=== PATIENT | female | born 1960 | race Asian ===

== ENCOUNTER → 2017-09-09 09:20 | Outpatient (CLI) | payer OTHER, SELFPAY ==
--- NOTE | 2017-09-09 09:22 | RAD_ITS ---
STUDY: X-RAY - LUMBOSACRAL SPINE REASON FOR EXAM: Female, 57 years old. Low back pain. TECHNIQUE: 7 view(s) of the lumbosacral spine were obtained with flexion and extension. COMPARISON: CT scan 07/04/2017 FINDINGS: Normal lumbar lordosis. There is no substantial scoliosis. There is normal alignment of the vertebrae. There is grossly normal flexion and extension. 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 Stable moderate degenerative disc disease at L5-S1. Otherwise normal disc space heights. Normal bilateral sacral ala, sacroiliac joints, and visualized sacrum. Normal visualized soft tissue structures. RAD/L/S Spine Comp/w Bending Views IMPRESSION: Mild to moderate degenerative changes, stable since previous CT scan. Electronically Signed: Duy Campo MD at 16:52 EST , Service support ,
== END ==
PROVIDERS: Family Provider Family Medicine; PCP Family Medicine; Visit Provider Orthopaedic Surgery
DX: M54.5 Low back pain (principal)
CPT/HCPCS: 72114

== ENCOUNTER 2017-11-28 07:00 | Outpatient (RCR) | payer OTHER, SELFPAY ==
--- NOTE | 2017-10-01 10:37 | HP.PTEVAL_ITS ---
Patient's Visit Information MAURICIO LEWIS is a 57 year old F referred to Physical Therapy by Nicole PEREZ with a diagnosis of Back pain, osteoporosis. Date of Evaluation: 10/01/17 Physical Therapist: Julius Subramanian DPT, OC - Visit Plan Frequency: 2x /Week Duration: 4 Weeks Plan: 2x/weekf for 4 weeks. Monitor walking program. STM for 10-12 minutes to R and L UT and posterior shoulder. Teach core strength on mat, with band, with ball and fucntional WB lunges and squats and progress al to HEP with pics. - Subjective Subjective: 2 months ago back pain for no apparent reason. 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 It flares up every now and then. last pain was a couple days ago real light. Bad pain was 9/10 could not move in LB. No leg pain, no numbness or tingling but does cramp in calves. Pain mostly went away with time and OTC pain meds. Last time was most serious. That lasted 2-3 days. Sleep was challenging the first night. Sleep is now OK and Ok in morning. IT can be worse later in the day with sitting. 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 Missed the first day of pain but not since. Hobbies include walking and did this a couple weeks ago without a problem. No regular exercises except walking. Does 1-3 miles, does this Couple times per week and 1x/week in winter. Balance is OK. Basic ADLs are good today. Has jacket that she puts weights in up to 10# to get WB ex. - Pain LBP Pain Intensity (Out of 10): 0 Pain Intensity Range: 0, 9 - Objective Walks I without deviations, trasnfers without evidence of pain I to and fro sit and supine. LE AROM WFL and flexibility is mildly limited in ITB, UE AROM WFL, R shoulder mildly tender posterior to palpation. No tenderness in lumbar paraspinals or hips. reflexes 2/3 patella and achilles. Sensation EL WNL to gross light touch. Strength LE 4/5 in knees and ankles. 3+ hip abd and extension, 4 in flexion, no pain. LB AROM is full and painfree. Posture is forward head and scapula and flat lordosis. - Balance Scores Functional Gait Assessment Score: 30 % Disability: 0 - Goals Goal 1:: I approp HEP to mionimize future problems for WB ex and core/hip/ postural strength. Goal Time Frame: 4-6 Weeks Goal 2:: 4/5 hip strength and posture in neutral spine without VC. Goal Time Frame: 4-6 Weeks Goal 3:: Pain 0/10 in LB for two weeks. Goal Time Frame: 4-6 Weeks - Rehabilitation Potential Physical Therapy Diagnosis: H/O LBP appropriate for ex management. Rehabilitation Potential: Good - Anticipated Interventions Patient/Client Instruction: Educate patient on: Condition, Plan of Care, Risk Factors For the Purpose of:: To decrease pain, To improve muscle performance and motor function, To improve safety Therapeutic Exercise to Include: Strength training, Dynamic Lumbar Stabilization Comment: WB exercises for OP(walking progression and management. For the Purpose of:: To improve nutrient delivery to tissue, To improve muscle performance and motor function, To improve health of tissue, To reduce risk of recurrence, To improve safety Manual Therapy Techniques to Include: Soft tissue mobilization Comment: R upper back and shoulder For the Purpose of:: To improve nutrient delivery to tissue Thank you for the opportunity to evaluate your patient. For Medicare and Medicare HMO plans, please review the plan of care and approve it. It will need to be FAXED BACK to us at [phone] for Medicare purposes. Please let me know if there are questions or concerns regarding this plan of care. Physician Signature: Date:
--- NOTE | 2017-11-28 07:30 | HP.PTDCSUM_ITS ---
HP - PT D/C Summary It has been my pleasure to treat MAURICIO LEWIS under orders from Nicole Dillard, for the diagnosis of Back pain, osteoporosis for a total of 13 visit(s). Discharge Date: 11/28/17 Please see the following information for a summary of their discharge status. - Subjective Subjective: 70% better. Still has R shoulder pain at times but much less intense than it used to be. LB does not bother her at all. Neck and R shoulder to 3/10 at times usually with work. Sleep is OK. Ex OK. - Pain LBP Pain Intensity (Out of 10): 1 - Overall Improvement % Improvement: 70 - Objective Objective/Function: Full aROM shoulder and neck, still some tightness R UT. Still weak in ext rot B shoulders but much improved posture with exercises and functionally. - Goals Goal 1:: I approp HEP to mionimize future problems for WB ex and core/hip/ postural strength. Goal Progress: Goal Met Goal 2:: 4/5 hip strength and posture in neutral spine without VC. Goal Progress: Goal Met Goal 3:: Pain 0/10 in LB for two weeks. Goal Progress: Goal Met Goal 4:: Pain and achiness in shoulder back down to 0/10 and 95% better. Goal Progress: Progressing - Plan Plan: D/C to HEP - D/C Information Discharge Comments: Pt doing well and will continue with strength and stretch 3x /week I. Contact doctor if problem recurs. If there are questions or concerns regarding this patient's physical therapy, please feel free to call me at [phone]. Thank you for the referral of this patient. Sincerely, Julius Subramanian, DPT, OC
== END 2017-11-28 19:00 | disposition home or self-care (01) ==
LOC: PT 07:00
PROVIDERS: Family Provider Family Medicine; PCP Family Medicine; Visit Provider Orthopaedic Surgery
DX: M54.9 Dorsalgia, unspecified (principal); M81.0 Age-related osteoporosis without current pathological fracture
CPT/HCPCS: 97035; 97110; 97140; 97162; 97530

== ENCOUNTER → 2018-03-23 12:16 | Outpatient (CLI) | payer OTHER, SELFPAY ==
[2018-03-23 14:12] LABS: Absolute Lymphocyte Count 2.47 X10^3/ul (0.83-4.51); Basophil# 0.02 X10^3/uL; Basophil% 0.3 % (0-1); Eosinophils% 1.6 % (0-5); Hematocrit 41.9 % (37-47); Hemoglobin 13.6 g/dl (12.0-15.0); Lymphocyte # 2.47 X10^3/ul (4.0); Lymphocyte % 40.7 % (19-41); Mean Corp Hgb Conc 32.5 g/gl (32-36); Mean Corpuscular Hgb 29.5 pg (27.0-32.0); Mean Corpuscular Volume 90.9 fL (81-99); Mean Platelet Vol. 10.7 fl (6.2-12.0); Monocyte# 0.45 X10^3/uL; Monocyte% 7.4 % (0-10); Neutrophil # 3.02 X10^3/uL (2.7-7.7); Neutrophil % 49.8 % (47-70); Partial Thromboplast Time 31.4 Seconds (24.1-36.2); Platelet Count 222 K/mm3 (150-450); Prothrombin Time (Protime)PT. 12.7 SECONDS (11.7-14.9); RBC Distribution Width CV 13.6 % (11.6-14.6); RBC Distribution Width SD 44.8 fl (35.1-43.9); Red Blood Count 4.61 M/mm3 (4.2-5.4); White Blood Count 6.1 K/mm3 (4.4-11.0)
[2018-03-23 14:21] LABS: Thyroid Stim Hormone (TSH) 1.68 uIU/mL (0.358-3.74)
[2018-03-23 14:33] LABS: POSITIVE COUNT NO; POSITIVE DIFFERENTIAL NO; POSITIVE MORPHOLOGY NO
[2018-03-25 11:26] LABS: Thrombin Time 17.8 sec (0.0-23.0)
== END ==
PROVIDERS: Family Provider Family Medicine; PCP Family Medicine; Visit Provider Family Medicine
DX: R23.8 Other skin changes (principal)
CPT/HCPCS: 36415; 84443; 85025; 85610; 85670; 85730

== ENCOUNTER → 2018-04-20 09:01 | Outpatient (CLI) | payer OTHER, SELFPAY ==
[2018-04-20 11:16] LABS: Ferritin 128 ng/mL (8-252); Magnesium 2.2 mg/dL (1.6-2.6)
[2018-04-24 05:43] LABS: Rapid Plasmin Reagin (RPR) NONREACTIVE (NONREACTIVE)
[2018-04-24 08:10] LABS: Immunoglobulin E 11 IU/mL (0-100)
== END ==
PROVIDERS: Family Provider Family Medicine; PCP Family Medicine; Visit Provider Family Medicine
DX: R25.2 Cramp and spasm (principal); R41.89 Other symptoms and signs involving cognitive functions and awareness; J30.9 Allergic rhinitis, unspecified
CPT/HCPCS: 36415; 82140; 82728; 82785; 83735; 86592

== ENCOUNTER → 2018-06-24 08:58 | Outpatient (CLI) | payer OTHER, SELFPAY ==
[2018-06-24 11:27] LABS: BUN 25 mg/dL (7-18); Creatinine, Serum 0.69 mg/dL (0.55-1.02); Glucose 86 mg/dL (74-106)
[2018-06-24 11:28] LABS: AST(SGOT) 17 U/L (15-37); Alanine Aminotransfer ALT/SGPT 27 U/L (13-56); Albumin, Serum 3.8 g/dL (3.2-5.0); Alkaline Phosphatase 62 U/L (45-117); Anion Gap 9 (5-15); BUN/Creat Ratio 36.1 RATIO (10-20); CRP < 2.90 mg/L (0.0-3.0); Calcium,Total 9.3 mg/dL (8.5-10.1); Chloride 106 mmol/L (98-107); Cholesterol 228 mg/dL (200); EST Glomerular Filtration Rate 92 mL/min (>60); Est Glom Filt Rate - Afr Amer 111 mL/min (>60); Globulin 3.8 g/dL (2.2-4.2); High Density Lipoprotein 86 mg/dL; Potassium 3.9 mmol/L (3.5-5.1); Protein, Total 7.6 g/dL (6.4-8.2); Sodium Level 142 mmol/L (136-145); Triglycerides 53 mg/dL; Very Low Density Lipoprotein 11 mg/dL (5-40)
[2018-06-24 11:34] LABS: PTHIN 41.1 pg/mL (18.4-80.1)
[2018-06-26 12:39] LABS: ANTINUCLEAR ANTIBODIES DIRECT Negative (Negative)
[2018-06-26 16:09] LABS: PROEL- A/G Ratio 1.3 (0.7-1.7); PROEL- Albumin 4.2 g/dL (2.9-4.4); PROEL- Alpha-1 Globulin 0.2 g/dL (0.0-0.4); PROEL- Alpha-2 Globulin 0.7 g/dL (0.4-1.0); PROEL- Beta Globulin 1.1 g/dL (0.7-1.3); PROEL- Gamma Globulin 1.2 g/dL (0.4-1.8); PROEL- Globulin, Total 3.2 g/dL (2.2-3.9); PROEL- TOTAL PROTEIN 7.4 g/dL (6.0-8.5)
[2018-06-26 16:23] LABS: Acetylcholine Receptor Binding < 0.03 nmol/L (0.00-0.24); Zinc, Plasma or Serum 101 ug/dL (56-134)
--- OUTSIDE RECORDS SUMMARY | 2018-08-10 04:51 | XMS RPT_ITS ---
:1960 Author Organization OHIP Care Team Providers Name Role Phone GregorioJulius Attending Unavailable Gregorio, Julius Primary Care Unavailable Gregorio, Julius Attending Unavailable Gregorio, Julius Referring Unavailable Gregorio, Julius Primary Care Unavailable Dillard, Nicole Attending Unavailable Gregorio, Julius Referring Unavailable Gregorio, Julius Primary Care Unavailable Dillard, Nicole Attending Unavailable Dillard, Nicole Referring Unavailable Gregorio, Julius Primary Care Unavailable Dillard, Nicole Attending Unavailable Dillard, Nicole Referring Unavailable Gregorio, Julius Primary Care Unavailable Ubaldo Dow S. Attending Unavailable Victor MRadhamesUbaldo S. Referring Unavailable Gregorio, Julius Primary Care Unavailable Gregorio, Julius Attending Unavailable Gregorio, Julius Referring Unavailable Gregorio, Julius Primary Care Unavailable Gregorio, Julius Attending Unavailable Gregorio, Julius Primary Care Unavailable PROBLEMS PROBLEMS DATE TYPE CONDITION / CODE ATTENDING STATUS SOURCE 06/24/2018 Unknown M81.0 - Julius Gregorio Active [place] Age-related [facility] osteoporosis Hospital without current Repository pathological fracture / M81.0(ICD-10) 06/24/2018 Unknown E83.39 - Other Julius Gregorio Active [place] [facility] of [facility] phosphorus Hospital metabolism / Repository E83.39(ICD-10) 06/24/2018 Unknown Z13.220 - Julius Gregorio Active [place] Encounter for Community screening for Hospital lipoid disorders / Repository Z13.220(ICD-10) 06/24/2018 Unknown R25.2 - Cramp and Julius Gregorio Active [place] spasm / Community R25.2(ICD-10) Hospital Repository 12/04/2017 Unknown M54.9 - Dorsalgia, Caryl DillardNicole Active [place] unspecified / Community M54.9(ICD-10) Hospital Repository 09/09/2017 Unknown M54.5 - Low back Dillard, Nicole Active [place] pain / Community M54.5(ICD-10) Hospital Repository PROCEDURES PROCEDURES No Procedure Records FoundRESULTS RESULTS VITAMIN B12 Collected: 07/29/2018 Status: F Source: [place] 10:24 AM [facility] REPOSITORY TYPE CODE TESTS RESULT OUT OF RANGE REFERENCE UNITS LAB L503.0105 211-911 pg/mL Normal Vitamin B12 825 Performed By: #### L503.0105 #### [facility] [address] [place], [address] ELECTROLYTE PANEL Collected: 07/29/2018 Status: F Source: [place] 10:24 AM [facility] REPOSITORY TYPE CODE TESTS RESULT OUT OF RANGE REFERENCE UNITS LAB L501.5300 136-145 mmol/L Normal NA 140 LAB L501.5600 3.5-5.1 mmol/L Normal K 4.0 LAB L501.5900 98-107 mmol/L High CL 108 LAB L501.6100 21.0-32.0 mmol/L Normal CO2 26.0 LAB L501.6200 5-15 Normal GAP 6 Performed By: #### L501.5294, L501.9520 #### [facility] [address] [facility] [facility] [place], [address] THYROID STIM HORMONE Collected: 07/29/2018 Status: F Source: [place] (TSH) 10:24 AM [facility] REPOSITORY TYPE CODE TESTS RESULT OUT OF RANGE REFERENCE UNITS LAB L501.9520 0.358-3.74 uIU/mL Normal TSH 1.59 Performed By: #### L501.5294, L501.9520 #### [facility] [address] [place], [address] RAPID PLASMIN REAGIN Collected: 07/29/2018 Status: F Source: [place] (RPR) 10:24 AM [facility] REPOSITORY TYPE CODE TESTS RESULT OUT OF REFERENCE UNITS RANGE LAB L700.5000 NONREACTIVE NONREACTIVE Normal RPR Performed By: #### L700.5000 #### [facility] [address] [place], [address] ARTERIAL Observed: 07/01/2018 Status: F Source: [place] 6:47 PM [facility] REPOSITORY [facility] Cardiovascular Services [address] [place] [address] Ankle Brachial Index 07/01/18 0955 MR#: [id number] Acct: [id number] Name: MAURICIO LEWIS Rep #: [id number] : 1960 58 From: Julian Vázquez MD Attending Dr: Julius Gregorio MD Status: REG CLI Ordering Dr: Julius Gregorio MD Date: 07/01/18 Location: CVS Sex: F A Admitted: Reason For Study: Ino leg cramping Left Segmental Pressures Left brachial= 98mmHg. Left posterior tibial artery = 122mmHg. Left dorsalis pedis artery = 110mmHg. The left dorsalis pedis waveforms are biphasic. The left posterior tibial artery waveforms are triphasic. Right Segmental Pressures Right brachial= 99mmHg. Right posterior tibial artery = 128mmHg. Right dorsalis pedis artery = 120mmHg. The right dorsalis pedis waveforms are triphasic. The right posterior tibial artery waveforms are triphasic. Indices The right ankle brachial index by the dorsalis pedis is 1.29. The right ankle brachial index by the posterior tibial artery is 1.21. The right post exercise ankle brachial index is 1.29. The left ankle brachial index by the dorsalis pedis is 1.11. The left ankle brachial index by the posterior tibial artery is 1.23. The left post exercise ankle brachial index is 1.23. Interpretation Summary Triphasic waveforms are noted at ankle level on the right. Triphasic and biphasic waveforms are noted at ankle level on the left. Resting ankle-brachial indices are normal bilaterally. Following exercise, ankle pressures augment bilaterally, which is a normal physiological response. There is no evidence of significant arterial occlusive disease. Ordering Physician: Julius Gregorio Referring Physician: Julius Gregorio Performed By: Rose Mary Rodriguez Jerica 07/01/181846 Date Julian Vázquez MD CC: Julius Gregorio MD Date Dictated: 07/01/18 0955 Date Transcribed: 07/01/181846 Plating Stripper: Signed VITAMIN D,25 HYDROXY Collected: 06/24/2018 Status: F Source: [place] 8:59 AM [facility] REPOSITORY TYPE CODE TESTS RESULT OUT OF RANGE REFERENCE UNITS LAB L506.1000 29.95-100.01 ng/mL Normal Vitamin D 40.0 25-OH Result Comment: Vitamin D 25(OH) Status Range Deficiency <20 ng/mL (50nmol/L) Insuffciency 20 - 30 ng/mL (50 - 75 nmol/L) Sufficiency 30 - 100 ng/mL (75 - 250 nmol/L) Toxicity >100 ng/mL (>250 nmol/L) Performed By: #### L506.1000, L500.4050, L500.4100, L509.1000 #### [facility] [address] [place], [place], [address] #### L3100.5475, L3100.3450, L3300.0600, L3300.9900 #### [facility] (refer to report for specific site) refer to report for address and phone number COMPREHENSIVE METABOLIC Collected: 06/24/2018 Status: F Source: [facility] 8:59 AM [facility] REPOSITORY TYPE CODE TESTS RESULT OUT OF RANGE REFERENCE UNITS LAB L501.0100 74-106 mg/dL Normal GLU 86 Result Comment: Please note revised GLUCOSE reference range effective 2017. LAB L501.1000 7-18 mg/dL High BUN 25 LAB L501.1100 0.55-1.02 mg/dL Normal CREAT,SERUM 0.69 Result Comment: The validity of the calculated GFR AND GFRAA in patients over 70 years has not been determined. Clinical correlation is essential. LAB L501.1110 >60 mL/min Normal EST GFR 92 Result Comment: Non- GFR Calc LAB L501.1115 >60 mL/min Normal EST GFR - AA 111 Result Comment: GFR Calc LAB L501.1300 10-20 RATIO High BUN/CRE 36.1 LAB L501.1500 6.4-8.2 g/dL T Normal PROT 7.6 LAB L501.1800 3.2-5.0 g/dL Normal ALB 3.8 LAB L501.1950 2.2-4.2 g/dL Normal GLOB 3.8 LAB L501.2000 0.9-2.4 RATIO Normal A/G 1.0 LAB L501.2200 8.5-10.1 mg/dL CA Normal 9.3 LAB L501.4100 15-37 U/L Normal AST 17 LAB L501.4305 45-117 U/L Normal ALK P 62 LAB L501.4405 13-56 U/L Normal ALT 27 LAB L501.4600 0.20-1.00 mg/dL T Normal BILI 0.60 LAB L501.5300 136-145 mmol/L NA Normal 142 LAB L501.5600 3.5-5.1 mmol/L K Normal 3.9 LAB L501.5900 98-107 mmol/L CL Normal 106 LAB L501.6100 21.0-32.0 mmol/L Normal CO2 27.0 LAB L501.6200 5-15 Normal GAP 9 Performed By: #### L506.1000, L500.4050, L500.4100, L509.1000 #### [facility] [address] [facility] [place], [place], [address] #### L3100.5475, L3100.3450, L3300.0600, L3300.9900 #### [facility] (refer to report for specific site) refer to report for address and phone number LIPID PROFILE Collected: 06/24/2018 Status: F Source: [place] 8:59 AM [facility] REPOSITORY TYPE CODE TESTS RESULT OUT OF RANGE REFERENCE UNITS LAB L501.4900 200 mg/dL High CHOL 228 Result Comment: <200 mg/dL Desirable 200-240 mg/dL Borderline >240 mg/dL High Risk LAB L501.5000 mg/dL Normal TRIG 53 Result Comment: The drugs N-Acetylcysteine and Metamizole may falsely depress this assay. Serum Triglycerides Reference Interval Normal <150 mg/dL Borderline high 150 - 199 mg/dL High 200 - 499 mg/dL Very High > or = 500 mg/dL LAB L501.6400 mg/dL Normal HDL 86 Result Comment: The drugs N-Acetylcysteine and Metamizole may falsely depress this assay. Reference Range HDL <40 mg/dL Low HDL Cholesterol HDL >or= 60 mg/dL High HDL Cholesterol LAB L501.6500 0-130 mg/dL High LDL 131 LAB L501.6600 5-40 mg/dL Normal VLDL 11 Performed By: #### L506.1000, L500.4050, L500.4100, L509.1000 #### [facility] [address] [facility] [place], [place], [address] #### L3100.5475, L3100.3450, L3300.0600, L3300.9900 #### [facility] (refer to report for specific site) refer to report for address and phone number PTHIN Collected: 06/24/2018 Status: F Source: [place] 8:59 AM [facility] REPOSITORY TYPE CODE TESTS RESULT OUT OF RANGE REFERENCE UNITS LAB L509.1000 18.4-80.1 pg/mL Normal PTHIN 41.1 Performed By: #### L506.1000, L500.4050, L500.4100, L509.1000 #### [facility] [place], [address] #### L3100.5475, L3100.3450, L3300.0600, L3300.9900 #### [facility] (refer to report for specific site) refer to report for address and phone number ANTINUCLEAR ANTIBODIES Collected: 06/24/2018 Status: F Source: [place] DIRECT 8:59 AM [facility] REPOSITORY TYPE CODE TESTS RESULT OUT OF RANGE REFERENCE UNITS LAB L3100.5475 Negative Normal Negative ZULY-DIRECT Result Comment: Performed at: [facility] [id number] Bunghole Borer: Cuba Calixto PhD, Phone: [phone] Performed By: #### L506.1000, L500.4050, L500.4100, L509.1000 #### [facility] [place], [place], [address] #### L3100.5475, L3100.3450, L3300.0600, L3300.9900 #### [facility] (refer to report for specific site) refer to report for address and phone number PROTEIN ELECTROPH, S Collected: 06/24/2018 Status: F Source: [place] 8:59 AM [facility] REPOSITORY Order Comment: Has Patient had Radioactive Injection for X-ray?: N TYPE CODE TESTS RESULT OUT OF RANGE REFERENCE UNITS LAB L3100.3500 6.0-8.5 g/dL Normal PROTEIN,TOTAL 7.4 LAB L3100.3600 2.9-4.4 g/dL Normal ALBUMIN 4.2 LAB L3100.3700 0.0-0.4 g/dL Normal ALPHA-1 GLOBUL 0.2 LAB L3100.3800 0.4-1.0 g/dL Normal ALPHA-2 GLOBUL 0.7 LAB L3100.3900 0.7-1.3 g/dL Normal BETA GLOBULIN 1.1 LAB L3100.4000 0.4-1.8 g/dL Normal GAMMA GLOBULIN 1.2 LAB L3100.4110 Normal M-SPIKE Result Comment: Not Observed LAB L3100.4200 2.2-3.9 g/dL GLOBULIN, TOTAL Normal 3.2 LAB L3100.4300 0.7-1.7 A/G RATIO Normal 1.3 LAB L3100.4320 . INTERPRETATION Normal Comment Result Comment: Protein electrophoresis scan will follow via computer, mail, or healthcare or medical delivery. LAB L3100.4340 . Normal NOTE: Comment Result Comment: The SPE pattern appears essentially unremarkable. Evidence of monoclonal protein is not apparent. Performed By: #### L506.1000, L500.4050, L500.4100, L509.1000 #### [facility] [address] [place], [place], [address] #### L3100.5475, L3100.3450, L3300.0600, L3300.9900 #### [facility] (refer to report for specific site) refer to report for address and phone number ACETYLCHOLINE RECEPTOR Collected: 06/24/2018 Status: F Source: [place] 8:59 AM [facility] REPOSITORY Order Comment: Has Patient had Radioactive Injection for X-ray?: N TYPE CODE TESTS RESULT OUT OF RANGE REFERENCE UNITS LAB L3300.0600 0.00-0.24 nmol/L Normal ACTYL < 0.03 [id number] Result Comment: Negative: 0.00 - 0.24 Borderline: 0.25 - 0.40 Positive: > 0.40 Performed By: #### L506.1000, L500.4050, L500.4100, L509.1000 #### [facility] [address] [place], [address] #### L3100.5475, L3100.3450, L3300.0600, L3300.9900 #### [facility] (refer to report for specific site) refer to report for address and phone number ZINC, PLASMA OR Collected: 06/24/2018 Status: F Source: [place] SERUM 8:59 AM [facility] REPOSITORY Order Comment: Has Patient had Radioactive Injection for X-ray?: N TYPE CODE TESTS RESULT OUT OF RANGE REFERENCE UNITS LAB L3300.9900 56-134 ug/dL Normal ZINC 101 Plasma/Ser Result Comment: Detection Limit = 5 Performed at: [facility] [email or web address] [id number] Bunghole Borer: Cuba Calixto PhD, Phone: [phone] Performed at: [facility] [email or web address] [id number] Bunghole Borer: Willy Elena MD, Phone: [phone] Performed By: #### L506.1000, L500.4050, L500.4100, L509.1000 #### [facility] [address] [facility] [address] #### L3100.5475, L3100.3450, L3300.0600, L3300.9900 #### [facility] (refer to report for specific site) refer to report for address and phone number CRP Collected: 06/24/2018 Status: F Source: [place] 8:59 AM [facility] REPOSITORY TYPE CODE TESTS RESULT OUT OF RANGE REFERENCE UNITS LAB L501.6710 0.0-3.0 mg/L Normal < 2.90 C-REACTIVE PROT Result Comment: C-Reactive Protein (CRP) provides useful information for the diagnosis, therapy and monitoring of inflammatory processes and associated diseases. For the evaluation of Relative Risk for Cardiovascular Disease, a High Sensitivity CRP (HSCRP) should be ordered. Performed By: #### L501.6710 #### [facility] [address] [place], [address] AMMONIA Collected: 04/20/2018 Status: F Source: [place] 9:02 AM [facility] REPOSITORY TYPE CODE TESTS RESULT OUT OF RANGE REFERENCE UNITS LAB L503.5510 11-32 umol/L Normal AMMONIA 26.0 Performed By: #### L503.5510 #### [facility] [address] [place], [address] MAGNESIUM Collected: 04/20/2018 Status: F Source: [place] 9:02 AM [facility] REPOSITORY TYPE CODE TESTS RESULT OUT OF RANGE REFERENCE UNITS LAB L501.5200 1.6-2.6 mg/dL Normal MG 2.2 Performed By: #### L501.5200, L503.6550 #### [facility] [address] [place], [address] FERRITIN Collected: 04/20/2018 Status: F Source: [place] 9:02 AM [facility] REPOSITORY TYPE CODE TESTS RESULT OUT OF RANGE REFERENCE UNITS LAB L503.6550 8-252 ng/mL Normal FERRITIN 128 Performed By: #### L501.5200, L503.6550 #### [facility] [address] [place], [address] RAPID PLASMIN REAGIN Collected: 04/20/2018 Status: F Source: [place] (RPR) 9:02 AM [facility] REPOSITORY TYPE CODE TESTS RESULT OUT OF REFERENCE UNITS RANGE LAB L700.5000 NONREACTIVE NONREACTIVE Normal RPR Performed By: #### L700.5000 #### [facility] [address] [place], [address] IMMUNOGLOBULIN E Collected: 04/20/2018 Status: F Source: [place] 9:02 AM [facility] REPOSITORY TYPE CODE TESTS RESULT OUT OF RANGE REFERENCE UNITS LAB L3200.1600 0-100 IU/mL Normal IMMUNO E 11 Result Comment: Performed at: [facility] [id number] Bunghole Borer: Hemanth Ibarra MD, Phone: [phone] Performed By: #### L3200.1600 #### [facility] (refer to report for specific site) refer to report for address and phone number THYROID STIM HORMONE Collected: 03/23/2018 Status: F Source: [place] (TSH) 12:20 PM [facility] REPOSITORY TYPE CODE TESTS RESULT OUT OF RANGE REFERENCE UNITS LAB L501.9520 0.358-3.74 uIU/mL Normal TSH 1.68 Performed By: #### L501.9520 #### [facility] [address] [place], [address] PROTHROMBIN TIME W/INR Collected: 03/23/2018 Status: F Source: [place] 12:20 PM [facility] REPOSITORY TYPE CODE TESTS RESULT OUT OF RANGE REFERENCE UNITS LAB L300.4150 11.7-14.9 SECONDS Normal PROTIME 12.7 LAB L300.4200 Normal INR 1.0 Performed By: #### L300.3900, L300.4310 #### [facility] [address] [place], [address] PARTIAL THROMBOPLAST Collected: 03/23/2018 Status: F Source: [place] TIME 12:20 PM [facility] REPOSITORY TYPE CODE TESTS RESULT OUT OF RANGE REFERENCE UNITS LAB L300.4310 24.1-36.2 Seconds Normal PTT 31.4 Performed By: #### L300.3900, L300.4310 #### [facility] [address] [place], [address] CBC W/DIFF, AUTOMATED Collected: 03/23/2018 Status: F Source: [place] 12:20 PM [facility] REPOSITORY TYPE CODE TESTS RESULT OUT OF RANGE REFERENCE UNITS LAB L100.1000 4.4-11.0 K/mm3 Normal WBC 6.1 LAB L100.1200 4.2-5.4 M/mm3 Normal RBC 4.61 LAB L100.1300 12.0-15.0 g/dl Normal HGB 13.6 LAB L100.1400 37-47 % Normal HCT 41.9 LAB L100.1500 81-99 fL Normal MCV 90.9 LAB L100.1600 27.0-32.0 pg Normal MCH 29.5 LAB L100.1700 32-36 g/gl Normal MCHC 32.5 LAB L100.1810 11.6-14.6 % Normal RDW CV 13.6 LAB L100.1820 35.1-43.9 fl High RDW SD 44.8 LAB L100.1900 150-450 K/mm3 Normal PLT 222 LAB L100.2000 6.2-12.0 fl Normal MPV 10.7 LAB L100.2100 47-70 % Normal NEUT% 49.8 LAB L100.2200 19-41 % Normal LY% 40.7 LAB L100.2300 0-10 % Normal MONO% 7.4 LAB L100.2400 0-5 % Normal EO% 1.6 LAB L100.2500 0-1 % Normal BASO% 0.3 LAB L100.2550 0.0-0.9 % Normal IM GRAN % 0.200 Result Comment: IG% - Immature Granulocytes (promyelocytes, myelocytes and metamyelocytes) > 1% indicates that a LEFT SHIFT is Present. LAB L100.2620 2.0-7.7 X10 3/uL Normal Absolute Neut 3.0 LAB L100.2720 0.83-4.51 X10 3/ul Normal Absolute Lymph 2.47 Performed By: #### L100.0100 #### [facility] [address] [place], [place], [address] THROMBIN TIME Collected: 03/23/2018 Status: F Source: [place] 12:20 PM [facility] REPOSITORY TYPE CODE TESTS RESULT OUT OF RANGE REFERENCE UNITS LAB L4500.9300 0.0-23.0 sec Normal Thrombin Time 17.8 Result Comment: Performed at: - [facility] [id number] Bunghole Borer: Hemanth Ibarra MD, Phone: [phone] Performed By: #### L4500.9300 #### [facility] (refer to report for specific site) refer to report for address and phone number PT D/C SUMMARY (1) Observed: 12/01/2017 Status: F Source: [place] 6:50 AM [facility] REPOSITORY [facility] [address] [place] [address]. [address] [place], [place] [address] Fax REHABILITATION SERVICES DISCHARGE SUMMARY MR#: [id number] Acct: [id number] Name: MAURICIO LEWIS Rep #: [id number] : 1960 57 From: Julius Subramanian DPT, OCS, CSCS Referring Dr.: Nicole Dillard MD Status: REG RCR Insurance: [employer] SELF PAY INSURANCE HP - PT D/C Summary It has been my pleasure to treat MAURICIO LEWIS under orders from Nicole Dillard, for the diagnosis of Back pain, osteoporosis for a total of 13 visit(s). Discharge Date: 11/28/17 Please see the following information for a summary of their discharge status. - Subjective Subjective: 70% better. Still has R shoulder pain at times but much less intense than it used to be. LB does not bother her at all. Neck and R shoulder to 3/10 at times usually with work. Sleep is OK. Ex OK. - Pain LBP Pain Intensity (Out of 10): 1 - Overall Improvement % Improvement: 70 - Objective Objective/Function: Full aROM shoulder and neck, still some tightness R UT. Still weak in ext rot B shoulders but much improved posture with exercises and functionally. - Goals Goal 1:: I approp HEP to mionimize future problems for WB ex and core/hip/postural strength. Goal Progress: Goal Met Goal 2:: 4/5 hip strength and posture in neutral spine without VC. Goal Progress: Goal Met Goal 3:: Pain 0/10 in LB for two weeks. Goal Progress: Goal Met Goal 4:: Pain and achiness in shoulder back down to 0/10 and 95% better. Goal Progress: Progressing - Plan Plan: D/C to HEP - D/C Information Discharge Comments: Pt doing well and will continue with strength and stretch 3x/week I. Contact doctor if problem recurs. If there are questions or concerns regarding this patient's physical therapy, please feel free to call me at [phone]. Thank you for the referral of this patient. Sincerely, Julius Subramanian DPT, OC <Electronically signed by Julius Subramanian DPT, ANDREEA, CSCS> 12/01/17 0650 CC: Nicole Dillard MD; Julius Gregorio MD EBG Signed INITAL EVALUATION (1) Observed: 10/02/2017 Status: F Source: [place] - PT 9:22 AM [facility] REPOSITORY [facility] [address] [place], [place] [address] Fax REHABILITATION SERVICES INITIAL EVALUATION MR#: [id number] Acct: [id number] Name: MAURICIO LEWIS Rep #: [id number] : 1960 57 From: Julius Subramanian DPT, OCS, CSCS Referring Dr.: Nicole Dillard MD Status: REG RCR Insurance: [employer] T[employer] SELF PAY INSURANCE Patient's Visit Information MAURICIO LEWIS is a 57 year old F referred to Physical Therapy by Nicole PEREZ with a diagnosis of Back pain, osteoporosis. Date of Evaluation: 10/01/17 Physical Therapist: Julius Subramanian DPT, OC - Visit Plan Frequency: 2x /Week Duration: 4 Weeks Plan: 2x/weekf for 4 weeks. Monitor walking program. STM for 10-12 minutes to R and L UT and posterior shoulder. Teach core strength on mat, with band, with ball and fucntional WB lunges and squats and progress al to HEP with pics. - Subjective Subjective: 2 months ago back pain for no apparent reason. 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 It flares up every now and then. last pain was a couple days ago real light. Bad pain was 9/10 could not move in LB. No leg pain, no numbness or tingling but does cramp in calves. Pain mostly went away with time and OTC pain meds. Last time was most serious. That lasted 2-3 days. Sleep was challenging the first night. Sleep is now OK and Ok in morning. IT can be worse later in the day with sitting. 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 Missed the first day of pain but not since. Hobbies include walking and did this a couple weeks ago without a problem. No regular exercises except walking. Does 1-3 miles, does this Couple times per week and 1x/week in winter. Balance is OK. Basic ADLs are good today. Has jacket that she puts weights in up to 10# to get WB ex. - Pain LBP Pain Intensity (Out of 10): 0 Pain Intensity Range: 0, 9 - Objective Walks I without deviations, trasnfers without evidence of pain I to and fro sit and supine. LE AROM WFL and flexibility is mildly limited in ITB, UE AROM WFL, R shoulder mildly tender posterior to palpation. No tenderness in lumbar paraspinals or hips. reflexes 2/3 patella and achilles. Sensation EL WNL to gross light touch. Strength LE 4/5 in knees and ankles. 3+ hip abd and extension, 4 in flexion, no pain. LB AROM is full and painfree. Posture is forward head and scapula and flat lordosis. - Balance Scores Functional Gait Assessment Score: 30 % Disability: 0 - Goals Goal 1:: I approp HEP to mionimize future problems for WB ex and core/hip/postural strength. Goal Time Frame: 4-6 Weeks Goal 2:: 4/5 hip strength and posture in neutral spine without VC. Goal Time Frame: 4-6 Weeks Goal 3:: Pain 0/10 in LB for two weeks. Goal Time Frame: 4-6 Weeks - Rehabilitation Potential Physical Therapy Diagnosis: H/O LBP appropriate for ex management. Rehabilitation Potential: Good - Anticipated Interventions Patient/Client Instruction: Educate patient on: Condition, Plan of Care, Risk Factors For the Purpose of:: To decrease pain, To improve muscle performance and motor function, To improve safety Therapeutic Exercise to Include: Strength training, Dynamic Lumbar Stabilization Comment: WB exercises for OP(walking progression and management. For the Purpose of:: To improve nutrient delivery to tissue, To improve muscle performance and motor function, To improve health of tissue, To reduce risk of recurrence, To improve safety Manual Therapy Techniques to Include: Soft tissue mobilization Comment: R upper back and shoulder For the Purpose of:: To improve nutrient delivery to tissue Thank you for the opportunity to evaluate your patient. For Medicare and Medicare HMO plans, please review the plan of care and approve it. It will need to be FAXED BACK to us at [phone] for Medicare purposes. Please let me know if there are questions or concerns regarding this plan of care. Physician Signature: Date: <Electronically signed by Julius Subramanian DPT, OCS, CSCS> 10/02/17 09 CC: Nicole Dillard MD; Julius Gregorio MD EBG Signed For Medicare only, by signing this I certify the plan of care. Physicians Signature Date ORTHOPEDIC VISIT Observed: 09/12/2017 Status: F Source: [place] REPORT 2:23 PM [facility] [place] REPOSITORY [facility] Orthopaedics AND Sports Medicine [address] [place] [id number] OFFICE VISIT Date of Service: 09/09/17 MR#: [id number] Acct: [id number] Name: MAURICIO LEWIS Rep #: [id number] : 1960 Provider: Nicole Dillard MD Age/Sex: 57/F Location: [facility] [place] Status: Signed Intake Vital Signs09/09/17 Height 5 ft 4 in 09/09/17 Weight: 120 lb 09/09/17 Body Mass Index (BMI) 20.5 Intake Visit Reasons: Low back Is patient in pain?: No Allergies No Known Allergies Allergy (Verified 09/05/17 08:54) Medications calcium carbonate-vitamin D3 600 mg (1,500 mg)-400 unit capsule cap PO 09/05/17 [History Confirmed 09/05/17] multivitamin tablet 1 tab PO QDAY 09/05/17 [History Confirmed 09/05/17] PFSH Medical History Disorder of right rotator cuff (Acute) Insomnia (Acute) Leg cramps (Acute) Chronic back pain (Chronic) Osteoporosis (Chronic) Raynaud phenomenon (Chronic) Family History Father Kidney disease Hypothyroidism Diabetes Social History Smoking Status: Never smoker HPI Low back: Details: MAURICIO LEWIS is a 57 year old RHD F here today for low back pain. Patient states that she had back pain about a month ago but her pain has completely resolved. Patient rates her pain at a 0/10 currently. Patient denies any known injury. She denies any radiating pain or numbness or tingling. When she had pain, she had increased pain with sitting and her pain was decreased when laying down. She denies any pain for a few weeks. She denies any physical therapy or injections. She has a history of resolving back pain in the past. This time, it was more severe. She denies constitutional symptoms. She saw her PCP and had NSAIDs. She denies bowel or bladder issues, gait instability or loss of hand dexterity. She has had no injections or surgeries. She has osteoporosis. 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 ROS Const Reports system reviewed and no additional complaints, except as docu Eyes Reports system reviewed and no additional complaints, except as docu ENT Reports system reviewed and no additional complaints, except as docu Card Reports system reviewed and no additional complaints, except as docu Resp Reports system reviewed and no additional complaints, except as docu GI Reports system reviewed and no additional complaints, except as docu Reports system reviewed and no additional complaints, except as docu Skin/Breast Reports system reviewed and no additional complaints, except as docu Neuro Yes system reviewed and no additional complaints, except as docu Psych Reports system reviewed and no additional complaints, except as docu Endo Reports system reviewed and no additional complaints, except as docu Ortho Exam Spine Neuro: Yes Bean's (negative bilaterally) General: alert, oriented x3 Skin: Yes dysraphism (no skin dysraphism) Capillary Refill <2sec: Yes Palpable Pulses: 2+ dp/pt pulses Gait: normal gait, other (heel and toe and tandem intact) Motor: strength 5/5 throughout Sensory Exam: no sensory deficits noted DTR's: Rt Triceps: 2+, Lt Triceps: 2+, Rt Biceps: 2+, Lt Biceps: 2+, Rt Brachioradialis: 2+, Lt Brachioradialis: 2+, Rt Patellar: 2+, Lt Patellar: 2+, Rt Ankle: 2+, Lt Ankle: 2+ Plantar Reflexes: Downgoing: bilateral Coordination: tandem gait normal, Romberg test normal SPINE TESTING CERVICAL THORACIC LUMBAR Musculoskeletal General: Yes normal gait and normal posture Cervical Spine: cervical ROM normal Thoracic/Lumbar Spine: straight leg raise negative bilaterally, thoraco-lumbar ROM normal, thoracic and lumbar spine normal to inspection Strength 0=absent - 5=normal Deltoid R (C5): 5, Deltoid L (C5): 5, R Bicep (C5-6): 5, L Bicep (C5-6): 5, R Wrist Extensor (C6): 5, L Wrist Extensor (C6): 5, R Tricep (C7): 5, L Tricep (C7): 5, R Finger Flexors (C8): 5, L Finger Flexors (C8): 5, R First Dorsal Interossei (C8): 5, L First Dorsal Interossei (C8): 5, R Hip Flexor (L1-3): 5, L Hip Flexor (L1-3): 5, R Quadriceps (L2-4): 5, L Quadriceps (L2-4): 5, R Anterior Tibialis (L4-5): 5, L Anterior Tibialis (L4- 5): 5, R Hamstrings (L5-S1): 5, L Hamstrings (L5-S1): 5, GS (S1): 5, L GS (S1): 5, R Peroneals (S1): 5, L Peroneals (S1): 5 Assessment AND Plan Problems 1. Acute midline low back pain without sciatica M54.5 Plan Imaging: Xr lumbar spine - diffuse spondylosis CT lumbar spine - diffuse spondylosis I/R/P: 1. back pain, resolved Ms. Lewis presents with back pain that has now resolved. The natural history and course of the symptomatology of lumbar spondylosis was discussed in detail with the patient. I answered all questions regarding the mode of onset, pathophysiology, symptoms, imaging findings, treatment options regarding her diagnosis. Her symptoms are resolved. Reviewed home exercise program. Provided prescription for physical therapy for fdc care. Follow up as needed. Plan of care discussed. All questions answered. The patient verbalized understanding of the disease process and agreed to the treatment plan formulated for this visit. Orders Orders: Coding Level of Care Code Off vis,new,level 4 Diagnoses Acute midline low back pain without sciatica M54.5 Back pain location: low back pain Chronicity: acute Back pain laterality: midline Sciatica presence: without sciatica 09/12/17 1423 <Electronically signed by Nicole Dillard MD> Date Nicole Dillard MD [facility] Signature: Date (if applicable) CC: L/S SPINE COMP/W Observed: 09/09/2017 Status: F Source: [place] VIEWS 9:22 AM [facility] [place] REPOSITORY [facility] Imaging Services [address] [place] [address] L/S Spine Comp/w Bending Views MR#: [id number] Acct: [id number] Name: MAURICIO LEWIS Rep #: [id number] : 1960 F 57 From: Duy Campo MD PCP: Julius Gregorio MD Status: REG CLI Study: L/S Spine Comp/w Bending Views Date of Exam: 09/09/17 Exam# [id number] Ordering Dr: Nicole Dillard MD STUDY: X-RAY - LUMBOSACRAL SPINE REASON FOR EXAM: Female, 57 years old. Low back pain. TECHNIQUE: 7 view(s) of the lumbosacral spine were obtained with flexion and extension. COMPARISON: CT scan 07/04/2017 FINDINGS: Normal lumbar lordosis. There is no substantial scoliosis. There is normal alignment of the vertebrae. There is grossly normal flexion and extension. 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 Stable moderate degenerative disc disease at L5-S1. Otherwise normal disc space heights. Normal bilateral sacral ala, sacroiliac joints, and visualized sacrum. Normal visualized soft tissue structures. RAD/L/S Spine Comp/w Bending Views IMPRESSION: Mild to moderate degenerative changes, stable since previous CT scan. 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 ALLERGIES ALLERGIES DATE TYPE / CODE NAME / CODE REACTION SEVERITY SOURCE 09/05/2017 Drug No Known Unknown [facility] Allergy/4160 Allergies/F00 Hospital 23830(SNOMED 0199720(RXNOR Repository CT) M) ENCOUNTERS ENCOUNTERS ADMIT/DISCHARGE ACCOUNT ADMITTING ENCOUNTER LOCATION SOURCE NUMBER CLASS 07/29/2018 [id number] Ambulatory [place] 0 [facility] ing:LAB Repository 07/01/2018 [id number] Ambulatory [place] 4 [facility] ing:CVS Repository 06/24/2018 [id number] Ambulatory [place] 7 [facility] ing:MFPLAB Repository 04/20/2018 [id number] Ambulatory [place] 1 [facility] ing:MFPLAB Repository 03/23/2018 [id number] Amb[place] 4 [facility] ing:MTLAB Repository 11/28/2017/ [id number] Ambulatory [place] 8 6 [facility] ing:PT Repository 09/09/2017 [id number] Ambulatory [place] 5 [facility] ing:HPRAD Repository 09/09/2017/ [id number] Ambulatory BMSBuilding:B [place] 8 7 [place] Repository PAYERS PAYERS ENCOUNTER GUARANTOR PAYER SUBSCRIBER SOURCE 07/29/2018 MAURICIOJOANN LEWIS581 Primary MAURICIO CHENDOB: [place] Insurance:[id number] [address]Rxa: (510) Number: Repository [phone] () [id number] Date:[id number] [address] [place] [id number]: 07/29/2018 Secondary NOT GIVENUNK [place] Insurance:SELF PAY [facility] Number: Effective Repository Date:2018-07-29 07/01/2018 MAURICIO LEWIS581 Primary Insurance:MED MAURICIO GUTIÉRREZB: [place] MUTUAL [place]APolicy [id number] [facility] [id number]: [phone] [id number] Repository [phone] (HP) Date:[id number] [address] [address]QXBRNAHGT, [place] [address]NI: CHECK WEBSITE 07/01/2018 Secondary NOT GIVENUNK [place] Insurance:SELF PAY [facility] Number: Effective Repository Date:2018-06-24 06/24/2018 MAURICIO LEWIS581 Primary Insurance:MED MAURICIO GUTIÉRREZB: [place] TPAPolicy [id number] Number: [facility] [id number]: [phone] [id number] Repository [phone] (HP) Date:0987-60-72YC [address] [address]XBTQDSVOT, [place] [address]BL: CHECK WEBSITE 06/24/2018 Secondary NOT GIVENUNK [place] Insurance:SELF PAY [facility] Number: Effective Repository Date:2018-06-24 04/20/2018 MAURICIO LEWIS581 Primary Insurance:MED MAURICIO GUTIÉRREZB: [place] TPAPolicy [id number] Number: [facility] [id number]: [phone] [id number] Repository [phone] (HP) Date:2274-89-58UQ [address] [address]HIQUSJLWB, [place] [address]PS: CHECK WEBSITE 04/20/2018 Secondary NOT GIVENUNK [place] Insurance:SELF PAY [facility] Number: Effective Repository Date:2018-04-20 03/23/2018 MAURICIO LEWSI581 Primary Insurance:MED MAURICIO GUTIÉRREZB: [place] TPAP[employer]icy [id number] Number: [facility] [id number]: [phone] [id number] Repository [phone] (HP) Date:7210-97-92RG [address] [address]IXDTNBZTH, [place] [address]UX: CHECK WEBSITE 03/23/2018 Secondary NOT GIVENUNK [place] Insurance:SELF PAY [facility] Number: Effective Repository Date:2018-03-23 11/28/2017 MAURICIO LEWIS581 Primary Insurance:MED MAURICIO LEWISDOB: [place] [employer] TPAP[employer]icy [id number] [facility] [place] [place] Number: Hospital [id number]: [phone] [id number] Repository [phone] () Date:0330-14-39CO [address] [address]QTBKRM, [place] [address]MX: CHECK WEBSITE 11/28/2017 Secondary NOT GIVENUNK [place] Insurance:SELF PAY [facility] Number: Effective Repository Date:2017-09-30 09/09/2017 MAURICIO LEWIS581 Primary Insurance:MED MAURICIO GUTIÉRREZB: [place] M[employer] TPAPolicy [id number] [facility] [place] [place] Number: Hospital [id number]: [phone] [id number] Repository [phone] () Date:3494-04-14CN [address] [address]UJJIYVVOW, [place] [address]XD: CHECK WEBSITE 09/09/2017 Secondary NOT GIVENUNK [place] Insurance:SELF PAY [facility] Number: Effective Repository Date:2017-09-09 09/09/2017 MAURICIO LEWIS581 Primary Insurance:MED MAURICIO GUTIÉRREZB: [place] [employer] TPAP[employer]icy [id number] [facility] [place] Number: Hospital [id number]: [phone] [id number] Repository [phone] () Date:8141-72-81WL [address] [address]KDV, [place] [address]LL: CHECK WEBSITE 09/09/2017 Secondary NOT GIVENUNK [place] Insurance:SELF PAY [facility] Number: Effective Repository Date:2017-07-29
== END ==
PROVIDERS: Family Provider Family Medicine; PCP Family Medicine; Visit Provider Family Medicine
DX: M81.0 Age-related osteoporosis without current pathological fracture (principal); E83.39 Other disorders of phosphorus metabolism; Z13.220 Encounter for screening for lipoid disorders; R25.2 Cramp and spasm
CPT/HCPCS: 36415; 80053; 80061; 82306; 83970; 84165; 84238; 84630; 86038; 86140

== ENCOUNTER → 2018-07-01 09:49 | Outpatient (CLI) | payer OTHER, SELFPAY ==
--- NOTE | 2018-07-01 09:52 | ART_ITS ---
Reason For Study: Ino leg cramping Left Segmental Pressures Left brachial= 98mmHg. Left posterior tibial artery = 122mmHg. Left dorsalis pedis artery = 110mmHg. The left dorsalis pedis waveforms are biphasic. The left posterior tibial artery waveforms are triphasic. Right Segmental Pressures Right brachial= 99mmHg. Right posterior tibial artery = 128mmHg. Right dorsalis pedis artery = 120mmHg. The right dorsalis pedis waveforms are triphasic. The right posterior tibial artery waveforms are triphasic. Indices The right ankle brachial index by the dorsalis pedis is 1.29. The right ankle brachial index by the posterior tibial artery is 1.21. The right post exercise ankle brachial index is 1.29. The left ankle brachial index by the dorsalis pedis is 1.11. The left ankle brachial index by the posterior tibial artery is 1.23. The left post exercise ankle brachial index is 1.23. Interpretation Summary Triphasic waveforms are noted at ankle level on the right. Triphasic and biphasic waveforms are noted at ankle level on the left. Resting ankle-brachial indices are normal bilaterally. Following exercise, ankle pressures augment bilaterally, which is a normal physiological response. There is no evidence of significant arterial occlusive disease. Ordering Physician: Julius Gregorio Referring Physician: Julius Gregorio Performed By: Rose Mary Rodriguez Jerica
--- OUTSIDE RECORDS SUMMARY | 2018-10-02 12:53 | XMS RPT_ITS ---
:1960 Author Organization OHIP Support Name Relationship Address Phone RBBSY Unavailable [address] + [place] [address] SUN, TI Unavailable Unavailable + [place] [address] RBBSY Unavailable [address] + [place] [address] SUN, TI Unavailable Unavailable + [place] [address] RBBSY Unavailable [address] + [place] [address] SUN, TI Unavailable Unavailable + [place] [address] RBBSY Unavailable [address] + [place] [address] SUN, TI Unavailable Unavailable + [place] [address] RBBSY Unavailable [address] + [place] [address] SUN, TI Unavailable Unavailable + [place] [address] RBBSY Unavailable [address] + [place] [address] SUN, TI Unavailable Unavailable + [place] [address] RBBSY Unavailable [address] + [place] [address] SUN, TI Unavailable / + [place] [address] RBBSY Unavailable [address] + [place] [address] SUN, TI Unavailable / + [place] [address] RBBSY Unavailable [address] [facility] + [place] [address] TI HOLGUIN Unavailable / + [place] [address] Care Team Providers Name Role Phone Gregorio, Julius Attending Unavailable Gregorio, Julius Primary Care Unavailable Gregorio, Julius Attending Unavailable Gregorio, Julius Referring Unavailable Gregorio, Julius Primary Care Unavailable Dillard, Nicole Attending Unavailable Gregorio, Julius Referring Unavailable Gregorio, Julius Primary Care Unavailable Dillard, Nicole Attending Unavailable Dillard, Nicole Referring Unavailable Gregorio, Julius Primary Care Unavailable Victor M, Ubaldo S. Attending Unavailable Victor M, Ubaldo S. Referring Unavailable Gregorio, Julius Primary Care Unavailable Victor M, Ubaldo S. Attending Unavailable Victor M, Ubaldo S. Referring Unavailable Gregorio, Julius Primary Care Unavailable Dillard, Nicole Attending Unavailable Dillard, Nicole Referring Unavailable Gregorio, Julius Primary Care Unavailable Gregorio, Julius Attending Unavailable Gregorio, Julius Referring Unavailable Gregorio, Julius Primary Care Unavailable Gregorio, Julius Attending Unavailable Gregoroi, Julius Primary Care Unavailable PROBLEMS PROBLEMS DATE TYPE CONDITION / CODE ATTENDING STATUS SOURCE 06/24/2018 Unknown M81.0 - GregorioJulius Active [place] Age-related Community osteoporosis Hospital without current Repository pathological fracture / M81.0(ICD-10) 06/24/2018 Unknown 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 Hospital metabolism / Repository E83.39(ICD-10) 06/24/2018 Unknown Z13.220 - Jg Julius Active [place] Encounter for Community screening for Hospital lipoid disorders / Repository Z13.220(ICD-10) 06/24/2018 Unknown R25.2 - Cramp and GregorioJulius Active [place] spasm / Community R25.2(ICD-10) Hospital Repository 12/04/2017 Unknown M54.9 - Dorsalgia, Nicole Dillard Active [place] unspecified / Community M54.9(ICD-10) Hospital Repository 09/09/2017 Unknown M54.5 - Low back Caryl DillardNicole Active [place] pain / Community M54.5(ICD-10) Hospital Repository PROCEDURES PROCEDURES No Procedure Records FoundRESULTS RESULTS VITAMIN B12 Collected: 07/29/2018 Status: F Source: [place] 10:24 AM [facility] REPOSITORY TYPE CODE TESTS RESULT OUT OF RANGE REFERENCE UNITS LAB L503.0105 211-911 pg/mL Normal Vitamin B12 825 Performed By: #### L503.0105 #### [facility] [address] [facility] [place], [address] ELECTROLYTE PANEL Collected: 07/29/2018 Status: F Source: [place] 10:24 AM [facility] REPOSITORY TYPE CODE TESTS RESULT OUT OF RANGE REFERENCE UNITS LAB L501.5300 136-145 mmol/L Normal NA 140 LAB L501.5600 3.5-5.1 mmol/L Normal K 4.0 LAB L501.5900 98-107 mmol/L High CL 108 LAB L501.6100 21.0-32.0 mmol/L Normal CO2 26.0 LAB L501.6200 5-15 Normal GAP 6 Performed By: #### L501.5294, L501.9520 #### [facility] [place], [address] THYROID STIM HORMONE Collected: 07/29/2018 Status: F Source: [place] (TSH) 10:24 AM [facility] REPOSITORY TYPE CODE TESTS RESULT OUT OF RANGE REFERENCE UNITS LAB L501.9520 0.358-3.74 uIU/mL Normal TSH 1.59 Performed By: #### L501.5294, L501.9520 #### [facility] [address] [place], [address] RAPID PLASMIN REAGIN Collected: 07/29/2018 Status: F Source: [place] (RPR) 10:24 AM [facility] REPOSITORY TYPE CODE TESTS RESULT OUT OF REFERENCE UNITS RANGE LAB L700.5000 NONREACTIVE NONREACTIVE Normal RPR Performed By: #### L700.5000 #### [facility] [place], [address] ARTERIAL Observed: 07/01/2018 Status: F Source: [place] 6:47 PM [facility] REPOSITORY [facility] Cardiovascular Services [address] [place] [address] [place] [address] Ankle Brachial Index 07/01/18 0955 MR#: [id number] Acct: [id number] Name: MAURICIO LEWIS Rep #: [id number] : 1960 58 From: Julian Vázquez MD Attending Dr: Julius Gregorio MD Status: REG CLI Ordering Dr: Julius Gregorio MD Date: 07/01/18 Location: [facility] Sex: F A Admitted: Reason For Study: [...] Julius Gregorio Performed By: Rose Mary Rodriguez [facility] 07/01/18 1847 Date Julian Vázquez MD CC: Julius Gregorio MD Date Dictated: 07/01/18954 Date Transcribed: 07/01/181846 Oyster Floater: Signed VITAMIN D,25 HYDROXY Collected: 06/24/2018 Status: F Source: [place] 8:59 AM [facility] REPOSITORY TYPE CODE TESTS RESULT OUT OF RANGE REFERENCE UNITS LAB L506.1000 29.95-100.01 ng/mL Normal Vitamin D 40.0 25-OH Result Comment: Vitamin D 25(OH) Status Range Deficiency <20 ng/mL (50nmol/L) Insuffciency 20 - 30 ng/mL (50 - 75 nmol/L) Sufficiency 30 - 100 ng/mL (75 - 250 nmol/L) Toxicity >100 ng/mL (>250 nmol/L) Performed By: #### L506.1000, L500.4050, L500.4100, L509.1000 #### [facility] [address] [place], [address] #### L3100.5475, L3100.3450, L3300.0600, L3300.9900 #### [facility] (refer to report for specific site) refer to report for address and phone number COMPREHENSIVE METABOLIC Collected: 06/24/2018 Status: F Source: [facility] 8:59 AM [facility] REPOSITORY TYPE CODE TESTS RESULT OUT OF [...] By: #### L506.1000, L500.4050, L500.4100, L509.1000 #### [facility] [address] [place], [address] #### L3100.5475, L3100.3450, L3300.0600, L3300.9900 #### [facility] (refer to report for specific site) refer to report for address and phone number LIPID PROFILE Collected: 06/24/2018 Status: F Source: [place] 8:59 AM [facility] REPOSITORY TYPE CODE TESTS RESULT OUT OF [...] By: #### L506.1000, L500.4050, L500.4100, L509.1000 #### [facility] [address] [place], [place], [address] #### L3100.5475, L3100.3450, L3300.0600, L3300.9900 #### [facility] (refer to report for specific site) refer to report for address and phone number PTHIN Collected: 06/24/2018 Status: F Source: [place] 8:59 AM [facility] REPOSITORY TYPE CODE TESTS RESULT OUT OF RANGE REFERENCE UNITS LAB L509.1000 18.4-80.1 pg/mL Normal PTHIN 41.1 Performed By: #### L506.1000, L500.4050, L500.4100, L509.1000 #### [facility] [place], [place], [address] #### L3100.5475, L3100.3450, L3300.0600, L3300.9900 #### [facility] (refer to report for specific site) refer to report for address and phone number ANTINUCLEAR ANTIBODIES Collected: 06/24/2018 Status: F Source: [place] DIRECT 8:59 AM [facility] REPOSITORY TYPE CODE TESTS RESULT OUT OF RANGE REFERENCE UNITS LAB L3100.5475 Negative Normal Negative ZULY-DIRECT Result Comment: Performed at: - [facility] [id number] Valuation Manager: Cuba Calixto PhD, Phone: [phone] Performed By: #### L506.1000, L500.4050, L500.4100, L509.1000 #### [facility] [place], [place], [address] #### L3100.5475, L3100.3450, L3300.0600, L3300.9900 #### [facility] (refer to report for specific site) refer to report for address and phone number PROTEIN ELECTROPH, S Collected: 06/24/2018 Status: F Source: [place] 8:59 AM [facility] REPOSITORY Order Comment: Has Patient had Radioactive [...] scan will follow via computer, mail, or rotary veneer 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 LAB L3100.4340 . Normal NOTE: Comment Result Comment: The SPE pattern appears essentially unremarkable. Evidence of monoclonal protein is not apparent. Performed By: #### L506.1000, L500.4050, L500.4100, L509.1000 #### [facility] [address] [place], [place], [address] #### L3100.5475, L3100.3450, L3300.0600, L3300.9900 #### [facility] (refer to report for specific site) refer to report for address and phone number ACETYLCHOLINE RECEPTOR Collected: 06/24/2018 Status: F Source: [place] 8:59 AM [facility] REPOSITORY Order Comment: Has Patient had Radioactive Injection for X-ray?: N TYPE CODE TESTS RESULT OUT OF RANGE REFERENCE UNITS LAB L3300.0600 0.00-0.24 nmol/L Normal ACTYL < 0.03 [id number] Result Comment: Negative: 0.00 - 0.24 Borderline: 0.25 - 0.40 Positive: > 0.40 Performed By: #### L506.1000, L500.4050, L500.4100, L509.1000 #### [facility] [address] [place], [address] #### L3100.5475, L3100.3450, L3300.0600, L3300.9900 #### [facility] (refer to report for specific site) refer to report for address and phone number ZINC, PLASMA OR Collected: 06/24/2018 Status: F Source: [place] SERUM 8:59 AM [facility] REPOSITORY Order Comment: Has Patient had Radioactive Injection for X-ray?: N TYPE CODE TESTS RESULT OUT OF RANGE REFERENCE UNITS LAB L3300.9900 56-134 ug/dL Normal ZINC 101 Plasma/Ser Result Comment: Detection Limit = 5 Performed at: [facility] [id number] Valuation Manager: Cuba Calixto PhD, Phone: [phone] Performed at: [facility] [address] [id number] Valuation Manager: Willy Elena MD, Phone: [phone] Performed By: #### L506.1000, L500.4050, L500.4100, L509.1000 #### [facility] [address] [place], [address] #### L3100.5475, L3100.3450, L3300.0600, L3300.9900 #### [facility] (refer to report for specific site) refer to report for address and phone number CRP Collected: 06/24/2018 Status: F Source: [place] 8:59 AM [facility] REPOSITORY TYPE CODE TESTS RESULT OUT OF RANGE REFERENCE UNITS LAB L501.6710 0.0-3.0 mg/L Normal < 2.90 C-REACTIVE PROT Result Comment: C-Reactive Protein (CRP) provides useful information for the diagnosis, therapy and monitoring of inflammatory processes and associated diseases. For the evaluation of Relative Risk for Cardiovascular Disease, a High Sensitivity CRP (HSCRP) should be ordered. Performed By: #### L501.6710 #### [facility] [address] [place], [address] AMMONIA Collected: 04/20/2018 Status: F Source: [place] 9:02 AM [facility] REPOSITORY TYPE CODE TESTS RESULT OUT OF RANGE REFERENCE UNITS LAB L503.5510 11-32 umol/L Normal AMMONIA 26.0 Performed By: #### L503.5510 #### [facility] [address] [place], [address] MAGNESIUM Collected: 04/20/2018 Status: F Source: [place] 9:02 AM [facility] REPOSITORY TYPE CODE TESTS RESULT OUT OF RANGE REFERENCE UNITS LAB L501.5200 1.6-2.6 mg/dL Normal MG 2.2 Performed By: #### L501.5200, L503.6550 #### [facility] [address] [place], [address] FERRITIN Collected: 04/20/2018 Status: F Source: [place] 9:02 AM [facility] REPOSITORY TYPE CODE TESTS RESULT OUT OF RANGE REFERENCE UNITS LAB L503.6550 8-252 ng/mL Normal FERRITIN 128 Performed By: #### L501.5200, L503.6550 #### [facility] [address] [place], [address] RAPID PLASMIN REAGIN Collected: 04/20/2018 Status: F Source: [place] (RPR) 9:02 AM [facility] REPOSITORY TYPE CODE TESTS RESULT OUT OF REFERENCE UNITS RANGE LAB L700.5000 NONREACTIVE NONREACTIVE Normal RPR Performed By: #### L700.5000 #### [facility] [address] [place], [address] IMMUNOGLOBULIN E Collected: 04/20/2018 Status: F Source: [place] 9:02 AM [facility] REPOSITORY TYPE CODE TESTS RESULT OUT OF RANGE REFERENCE UNITS LAB L3200.1600 0-100 IU/mL Normal IMMUNO E 11 Result Comment: Performed at: - [facility] [id number] Valuation Manager: Hemanth Ibarra MD, Phone: [phone] Performed By: #### L3200.1600 #### [facility] (refer to report for specific site) refer to report for address and phone number THYROID STIM HORMONE Collected: 03/23/2018 Status: F Source: [place] (TSH) 12:20 PM [facility] REPOSITORY TYPE CODE TESTS RESULT OUT OF RANGE REFERENCE UNITS LAB L501.9520 0.358-3.74 uIU/mL Normal TSH 1.68 Performed By: #### L501.9520 #### [facility] [address] [facility] [place], [place], [address] PROTHROMBIN TIME W/INR Collected: 03/23/2018 Status: F Source: [place] 12:20 PM [facility] REPOSITORY TYPE CODE TESTS RESULT OUT OF RANGE REFERENCE UNITS LAB L300.4150 11.7-14.9 SECONDS Normal PROTIME 12.7 LAB L300.4200 Normal INR 1.0 Performed By: #### L300.3900, L300.4310 #### [facility] [address] [place], [place], [address] PARTIAL THROMBOPLAST Collected: 03/23/2018 Status: F Source: [place] TIME 12:20 PM [facility] REPOSITORY TYPE CODE TESTS RESULT OUT OF RANGE REFERENCE UNITS LAB L300.4310 24.1-36.2 Seconds Normal PTT 31.4 Performed By: #### L300.3900, L300.4310 #### [facility] [address] [place], [place], [address] CBC W/DIFF, AUTOMATED Collected: 03/23/2018 Status: F Source: [place] 12:20 PM [facility] REPOSITORY TYPE CODE TESTS RESULT OUT OF [...] Lymph 2.47 Performed By: #### L100.0100 #### [facility] [address] [place], [place], [address] THROMBIN TIME Collected: 03/23/2018 Status: F Source: [place] 12:20 PM [facility] REPOSITORY TYPE CODE TESTS RESULT OUT OF RANGE REFERENCE UNITS LAB L4500.9300 0.0-23.0 sec Normal Thrombin Time 17.8 Result Comment: Performed at: - [facility] [address] [id number] Valuation Manager: Hemanth Ibarra MD, Phone: [phone] Performed By: #### L4500.9300 #### [facility] (refer to report for specific site) refer to report for address and phone number PT D/C SUMMARY (1) Observed: 12/01/2017 Status: F Source: [place] 6:50 AM [facility] REPOSITORY [facility] Physical Therapy [facility] [address] [place] [address] Fax REHABILITATION SERVICES DISCHARGE SUMMARY MR#: [id number] Acct: [id number] Name: MAURICIO LEWIS Rep #: [id number] : 1960 57 From: Julius Subramanian DPT, [...] please feel free to call me at [phone]. Thank you for the referral of this patient. Sincerely, Julius Subramanian DPT, OC <Electronically signed by Julius Subramanian DPT, ANDREEA, CSCS> 12/01/17 0650 CC: Nicole Dillard MD; Julius Gregorio MD EBG Signed INITAL EVALUATION (1) Observed: 10/02/2017 Status: F Source: [place] - PT 9:22 AM [facility] REPOSITORY [facility] Physical Therapy [facility] [address] [place] [address] Fax REHABILITATION SERVICES INITIAL EVALUATION MR#: [id number] Acct: [id number] Name: MAURICIO LEWIS Rep #: [id number] : 1960 57 From: ANDREEA Ballard DPT, CSCS Referring Dr.: Nicole Dillard MD Status: REG RCR Insurance: MED [employer] SELF PAY INSURANCE Patient's Visit Information MAURICIO LEWIS is a 57 year old F referred to Physical Therapy by Nicole PEERZ with a diagnosis of Back pain, osteoporosis. [...] sitting. 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 Missed the first day of pain but [...] to be FAXED BACK to us at [phone] for Medicare purposes. Please let me know if there are questions or concerns regarding this plan of care. Physician Signature: Date: <Electronically signed by Julius Subramanian DPT, OCS, CSCS> 10/02/17 09 CC: Nicole Dillard MD; Julius Gregorio MD EBG Signed For Medicare only, by signing this I certify the plan of care. Physicians Signature Date ORTHOPEDIC VISIT Observed: 09/12/2017 Status: F Source: [place] REPORT 2:23 PM [facility] REPOSITORY [facility] Orthopaedics AND Sports Medicine [address] [place] [address] OFFICE VISIT Date of Service: 09/09/17 MR#: [id number] Acct: [id number] Name: MAURICIO LEWIS Rep #: [id number] : 1960 Provider: Nicole Dillard MD Age/Sex: 57/F Location: [facility] Status: Signed Intake Vital Signs09/09/17 Height 5 [...] program. 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 Follow up as needed. Plan of [...] Nicole Dillard MD> Date Nicole Dillard MD Cosigner Signature: Date (if applicable) CC: L/S SPINE COMP/W Observed: 09/09/2017 Status: F Source: [place] BENDING VIEWS 9:22 AM [facility] REPOSITORY [facility] Imaging Services [address] [place] [address] L/S Spine Comp/w Bending Views MR#: [id number] Acct: [id number] Name: MAURICIO LEWIS Rep #: [id number] : 1960 F 57 From: Duy Campo MD PCP: Julius Gregorio MD Status: REG CLI Study: L/S Spine Comp/w Bending Views Date of Exam: 09/09/17 Exam# [id number] Ordering Dr: Nicole Dillard MD STUDY: X-RAY [...] CC: Nicole Dillard MD; Julius Gregorio MD Oyster Floater: Signed ALLERGIES ALLERGIES DATE TYPE / CODE NAME / CODE REACTION SEVERITY SOURCE 09/05/2017 Drug No Known Unknown Mobile [facility] Allergy/4160 Allergies/F00 Hospital 20806(SNOMED 6271208(RXNOR Repository CT) M) ENCOUNTERS ENCOUNTERS ADMIT/DISCHARGE ACCOUNT ADMITTING ENCOUNTER LOCATION SOURCE NUMBER CLASS 08/07/2018 [id number] Ambulatory [place] 4 [facility] ing:MRI Repository 07/29/2018 [id number] Ambulatory [place] Mobile 0 [facility] ing:LAB Repository 07/01/2018 [id number] Ambulatory [facility] Mobile 4 [facility] ing:CVS Repository 06/24/2018 [id number] Ambulatory [place] 7 [facility] ing:MFPLAB Repository 04/20/2018 [id number] Ambulatory [place] Mobile 1 [facility] ing:MFPLAB Repository 03/23/2018 [id number] Ambulatory [place] Mobile 4 [facility] ing:MTLAB Repository 11/28/2017/ [id number] Ambulatory [place] 8 6 [facility] ing:PT Repository 09/09/2017 [id number] Ambulatory [place] 5 [facility] ing:HPRAD Repository 09/09/2017/ [id number] Ambulatory BMSBuilding:B Mobile 8 7 [facility] Repository PAYERS PAYERS ENCOUNTER GUARANTOR PAYER SUBSCRIBER SOURCE 08/07/2018 MAURICIO BERMAN1 Primary MAURICIO CHAPIN: [place] [employer] Insurance:MEDICAL [id number] [address]Dsy: (510) Number: Repository [phone] () [id number] Date:3724-92-53FU [address] [place] [address]VK: 08/07/2018 Secondary NOT GIVENUNK Mobile Insurance:SELF PAY [facility] Number: Effective Repository Date:2018-08-03 07/29/2018 MAURICIO [id number] Primary MAURICIO CHENDOB: [place] Insurance:MEDICAL [id number] Hospital [facility] [address]Xas: (510) Number: Repository [phone] () [id number] Date:3516-89-81ZW [address] [address]HZ: 07/29/2018 Secondary NOT GIVENUNK Mobile Insurance:SELF PAY [facility] Number: Effective Repository Date:2018-07-29 07/01/2018 MAURICIO [id number] Primary Insurance:MED MAURICIO CHENDOB: Mobile [place] [facility] [id number] Number: [facility] [id number]: [phone]) [id number] Repository [phone] () Date:0283-57-76LS [address] [address]TRS[place]XXT, [place] [address]ZO: CHECK WEBSITE 07/01/2018 Secondary NOT GIVENUNK Mobile Insurance:SELF PAY [facility] Number: Effective Repository Date:2018-06-24 06/24/2018 MAURICIO [id number] Primary Insurance:MED MAURICIO CHENDOB: [place] [facility] [id number] Number: [facility] [id number]: [phone]) [id number] Repository [phone] () Date:4745-11-92NK [address] [address], [place] [address]TV: CHECK WEBSITE 06/24/2018 Secondary NOT GIVENUNK Mobile Insurance:SELF PAY [facility] Number: Effective Repository Date:2018-06-24 04/20/2018 MAURICIO [id number] Primary Insurance:MED MAURICIO GUTIÉRREZB: [place] MUTUAL TPAPolicy [id number] [place] Number: [facility] [id number]: [phone] [id number] Repository [phone] (HP) Date:9076-26-05YN [address] [address]DTKHQKGKC, [place] [address]LT: CHECK WEBSITE 04/20/2018 Secondary NOT GIVENUNK [place] Insurance:SELF PAY [facility] Number: Effective Repository Date:2018-04-20 03/23/2018 MAURICIO LEWIS581 Primary Insurance:MED MAURICIO GUTIÉRREZB: [place] MUTUAL TPAPolicy [id number], [place] Number: [facility] [id number]: [phone]) [id number] Repository [phone] (HP) Date:2804-86-40SD [address] [address]ROOWIFPYW, [place] [address]ZC: CHECK WEBSITE 03/23/2018 Secondary NOT GIVENUNK Mobile Insurance:SELF PAY [facility] Number: Effective Repository Date:2018-03-23 11/28/2017 MAURICIO [id number] Primary Insurance:MED MAURICIO GUTIÉRREZB: [place] MUTUAL TPAPolicy [id number], [place] Number: [facility] [id number]: [phone]) [id number] Repository [phone] () Date:0537-54-87QM [address] [address]GGEBULBWT, [place] [address]ES: CHECK WEBSITE 11/28/2017 Secondary NOT GIVENUNK Mobile Insurance:SELF PAY [facility] Number: Effective Repository Date:2017-09-30 09/09/2017 MAURICIO [id number] Primary Insurance:MED MAURICIO GUTIÉRREZB: [place] MUTUAL TPAPolicy [id number], [place] Number: [facility] [address]Xgw: [phone]) [id number] Repository [phone] (HP) Date:1006-74-19ZE [address] [address]RNOYFMTWW, [place] [address]RI: CHECK WEBSITE 09/09/2017 Secondary NOT GIVENUNK Mobile Insurance:SELF PAY [facility] Number: Effective Repository Date:2017-09-09 09/09/2017 MAURICIO [id number] Primary Insurance:PEÑA GUTIÉRREZB: Mobile [facility] [id number], [place] Number: [facility] [id number]: ([phone]) [id number] Repository [phone] () Date:9912-79-17XN [address] [address]QYVKCUHCO, [place] [address]QK: CHECK WEBSITE 09/09/2017 Secondary NOT GIVENUNK Mobile Insurance:SELF PAY [facility] Number: Effective Repository Date:2017-07-29
== END ==
PROVIDERS: Family Provider Family Medicine; PCP Family Medicine; Referring Provider Family Medicine; Visit Provider Family Medicine
DX: R25.2 Cramp and spasm (principal)
CPT/HCPCS: 93922

== ENCOUNTER → 2018-07-29 10:17 | Outpatient (CLI) | payer OTHER, SELFPAY ==
[2018-07-29 12:14] LABS: Vitamin B12 825 pg/mL (211-911)
[2018-07-29 12:25] LABS: Anion Gap 6 (5-15); Chloride 108 mmol/L (98-107); Sodium Level 140 mmol/L (136-145); Thyroid Stim Hormone (TSH) 1.59 uIU/mL (0.358-3.74)
[2018-07-31 00:15] LABS: Rapid Plasmin Reagin (RPR) NONREACTIVE (NONREACTIVE)
--- OUTSIDE RECORDS SUMMARY | 2018-10-03 04:58 | XMS RPT_ITS ---
:1960 Author Organization OHIP Support Name Relationship Address Phone RBBSY Unavailable [address] + [place] [address] SUN, TI Unavailable Unavailable + [place] [address] RBBSY Unavailable [address] + [place] [address] SUN, TI Unavailable Unavailable + [place] [address] RBBSY Unavailable [address] + [place] [address] SUN, TI Unavailable Unavailable + [place] [address] RBBSY Unavailable [address] + [place] [address] SUN, TI Unavailable Unavailable + [place] [address] RBBSY Unavailable [address] + [place] [address] SUN, TI Unavailable Unavailable + [place] [address] RBBSY Unavailable [address] + [place] [address] SUN, TI Unavailable Unavailable + [place] [address] RBBSY Unavailable [address] + [place] [address] SUN, TI Unavailable / + [place] [address] RBBSY Unavailable [address] + [place] [address] SUN, TI Unavailable / + [place] [address] RBBSY Unavailable [address] [facility] + [place] [address] TI HOLGUIN Unavailable / + [place] [address] Care Team Providers Name Role Phone Gregorio, [...] Unknown 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 Community phosphorus Hospital metabolism / Repository E83.39(ICD-10) 06/24/2018 Unknown Z13.220 - Jg Julius Active [place] Encounter for Community screening for Hospital lipoid disorders / Repository Z13.220(ICD-10) 06/24/2018 Unknown R25.2 - Cramp and GregorioJulius Active [place] spasm / Community R25.2(ICD-10) Hospital Repository 12/04/2017 Unknown M54.9 - Dorsalgia, Nicole Dillard Active [facility] unspecified / Community M54.9(ICD-10) Hospital Repository 09/09/2017 Unknown M54.5 - Low back Caryl DillardNicole Active [facility] pain / Community M54.5(ICD-10) Hospital Repository PROCEDURES PROCEDURES No Procedure Records FoundRESULTS RESULTS VITAMIN B12 Collected: 07/29/2018 Status: F Source: [place] 10:24 AM [facility] REPOSITORY TYPE CODE TESTS RESULT OUT OF RANGE REFERENCE UNITS LAB L503.0105 211-911 pg/mL Normal Vitamin B12 825 Performed By: #### L503.0105 #### [facility] [address] [facility] [place], [address] ELECTROLYTE PANEL Collected: 07/29/2018 Status: F Source: [place] 10:24 AM [facility] REPOSITORY TYPE CODE TESTS RESULT OUT OF RANGE REFERENCE UNITS LAB L501.5300 136-145 mmol/L Normal NA 140 LAB L501.5600 3.5-5.1 mmol/L Normal K 4.0 LAB L501.5900 98-107 mmol/L High CL 108 LAB L501.6100 21.0-32.0 mmol/L Normal CO2 26.0 LAB L501.6200 5-15 Normal GAP 6 Performed By: #### L501.5294, L501.9520 #### [facility] [place], [address] THYROID STIM HORMONE Collected: 07/29/2018 Status: F Source: [place] (TSH) 10:24 AM [facility] REPOSITORY TYPE CODE TESTS RESULT OUT OF RANGE REFERENCE UNITS LAB L501.9520 0.358-3.74 uIU/mL Normal TSH 1.59 Performed By: #### L501.5294, L501.9520 #### [facility] [address] [place], [address] RAPID PLASMIN REAGIN Collected: 07/29/2018 Status: F Source: [place] (RPR) 10:24 AM [facility] REPOSITORY TYPE CODE TESTS RESULT OUT OF REFERENCE UNITS RANGE LAB L700.5000 NONREACTIVE NONREACTIVE Normal RPR Performed By: #### L700.5000 #### [facility] [place], [address] ARTERIAL Observed: 07/01/2018 Status: F Source: [place] 6:47 PM [facility] REPOSITORY [facility] Cardiovascular Services [address] [place] [address] [place] [address] Ankle Brachial Index 07/01/18 0955 MR#: [id number] Acct: [id number] Name: MAURICIO LEWIS Rep #: [id number] : 1960 58 From: Julian Vázquez MD Attending Dr: Julius Gregorio MD Status: REG CLI Ordering Dr: Julius Gregorio MD Date: 07/01/18 Location: [facility] Sex: F A Admitted: Reason For Study: [...] Julius Gregorio Performed By: Rose Mary Rodriguez [facility] 07/01/18 1847 Date Julian Vázquez MD CC: Julius Gregorio MD Date Dictated: 07/01/18954 Date Transcribed: 07/01/181846 Sed Special Education Teacher: Signed VITAMIN D,25 HYDROXY Collected: 06/24/2018 Status: F Source: [place] 8:59 AM [facility] REPOSITORY TYPE CODE TESTS RESULT OUT OF RANGE REFERENCE UNITS LAB L506.1000 29.95-100.01 ng/mL Normal Vitamin D 40.0 25-OH Result Comment: Vitamin D 25(OH) Status Range Deficiency <20 ng/mL (50nmol/L) Insuffciency 20 - 30 ng/mL (50 - 75 nmol/L) Sufficiency 30 - 100 ng/mL (75 - 250 nmol/L) Toxicity >100 ng/mL (>250 nmol/L) Performed By: #### L506.1000, L500.4050, L500.4100, L509.1000 #### [facility] [address] [place], [address] #### L3100.5475, L3100.3450, L3300.0600, L3300.9900 #### [facility] (refer to report for specific site) refer to report for address and phone number COMPREHENSIVE METABOLIC Collected: 06/24/2018 Status: F Source: [facility] 8:59 AM [facility] REPOSITORY TYPE CODE TESTS RESULT OUT OF [...] By: #### L506.1000, L500.4050, L500.4100, L509.1000 #### [facility] [address] [place], [address] #### L3100.5475, L3100.3450, L3300.0600, L3300.9900 #### [facility] (refer to report for specific site) refer to report for address and phone number LIPID PROFILE Collected: 06/24/2018 Status: F Source: [place] 8:59 AM [facility] REPOSITORY TYPE CODE TESTS RESULT OUT OF [...] By: #### L506.1000, L500.4050, L500.4100, L509.1000 #### [facility] [address] [place], [place], [id number] #### L3100.5475, L3100.3450, L3300.0600, L3300.9900 #### [facility] (refer to report for specific site) refer to report for address and phone number PTHIN Collected: 06/24/2018 Status: F Source: [place] 8:59 AM [facility] REPOSITORY TYPE CODE TESTS RESULT OUT OF RANGE REFERENCE UNITS LAB L509.1000 18.4-80.1 pg/mL Normal PTHIN 41.1 Performed By: #### L506.1000, L500.4050, L500.4100, L509.1000 #### [facility] [place], [place], [address] #### L3100.5475, L3100.3450, L3300.0600, L3300.9900 #### [facility] (refer to report for specific site) refer to report for address and phone number ANTINUCLEAR ANTIBODIES Collected: 06/24/2018 Status: F Source: [place] DIRECT 8:59 AM [facility] REPOSITORY TYPE CODE TESTS RESULT OUT OF RANGE REFERENCE UNITS LAB L3100.5475 Negative Normal Negative ZULY-DIRECT Result Comment: Performed at: - [facility] [id number] Digital Printer Operator: Cuba Calixto PhD, Phone: [phone] Performed By: #### L506.1000, L500.4050, L500.4100, L509.1000 #### [facility] [place], [place], [address] #### L3100.5475, L3100.3450, L3300.0600, L3300.9900 #### [facility] (refer to report for specific site) refer to report for address and phone number PROTEIN ELECTROPH, S Collected: 06/24/2018 Status: F Source: [place] 8:59 AM [facility] REPOSITORY Order Comment: Has Patient had Radioactive [...] scan will follow via computer, mail, or industrial diamond polisher delivery. LAB L3100.4340 . Normal NOTE: Comment Result Comment: The SPE pattern appears essentially unremarkable. Evidence of monoclonal protein is not apparent. Performed By: #### L506.1000, L500.4050, L500.4100, L509.1000 #### [facility] [address] [place], [place], [address] #### L3100.5475, L3100.3450, L3300.0600, L3300.9900 #### [facility] (refer to report for specific site) refer to report for address and phone number ACETYLCHOLINE RECEPTOR Collected: 06/24/2018 Status: F Source: [place] 8:59 AM [facility] REPOSITORY Order Comment: Has Patient had Radioactive Injection for X-ray?: N TYPE CODE TESTS RESULT OUT OF RANGE REFERENCE UNITS LAB L3300.0600 0.00-0.24 nmol/L Normal ACTYL < 0.03 [id number] Result Comment: Negative: 0.00 - 0.24 Borderline: 0.25 - 0.40 Positive: > 0.40 Performed By: #### L506.1000, L500.4050, L500.4100, L509.1000 #### [facility] [address] [place], [address] #### L3100.5475, L3100.3450, L3300.0600, L3300.9900 #### [facility] (refer to report for specific site) refer to report for address and phone number ZINC, PLASMA OR Collected: 06/24/2018 Status: F Source: [place] SERUM 8:59 AM [facility] REPOSITORY Order Comment: Has Patient had Radioactive Injection for X-ray?: N TYPE CODE TESTS RESULT OUT OF RANGE REFERENCE UNITS LAB L3300.9900 56-134 ug/dL Normal ZINC 101 Plasma/Ser Result Comment: Detection Limit = 5 Performed at: [facility] [address] [id number] Digital Printer Operator: Cuba Calixto PhD, Phone: [phone] Performed at: [facility] [address] [id number] Digital Printer Operator: Willy Elena MD, Phone: [phone] Performed By: #### L506.1000, L500.4050, L500.4100, L509.1000 #### [facility] [address] [place], [address] #### L3100.5475, L3100.3450, L3300.0600, L3300.9900 #### [facility] (refer to report for specific site) refer to report for address and phone number CRP Collected: 06/24/2018 Status: F Source: [place] 8:59 AM [facility] REPOSITORY TYPE CODE TESTS RESULT OUT OF RANGE REFERENCE UNITS LAB L501.6710 0.0-3.0 mg/L Normal < 2.90 C-REACTIVE PROT Result Comment: C-Reactive Protein (CRP) provides useful information for the diagnosis, therapy and monitoring of inflammatory processes and associated diseases. For the evaluation of Relative Risk for Cardiovascular Disease, a High Sensitivity CRP (HSCRP) should be ordered. Performed By: #### L501.6710 #### [facility] [address] [place], [address] AMMONIA Collected: 04/20/2018 Status: F Source: [place] 9:02 AM [facility] REPOSITORY TYPE CODE TESTS RESULT OUT OF RANGE REFERENCE UNITS LAB L503.5510 11-32 umol/L Normal AMMONIA 26.0 Performed By: #### L503.5510 #### [facility] [address] [place], [address] MAGNESIUM Collected: 04/20/2018 Status: F Source: [place] 9:02 AM [facility] REPOSITORY TYPE CODE TESTS RESULT OUT OF RANGE REFERENCE UNITS LAB L501.5200 1.6-2.6 mg/dL Normal MG 2.2 Performed By: #### L501.5200, L503.6550 #### [facility] [address] [place], [address] FERRITIN Collected: 04/20/2018 Status: F Source: [place] 9:02 AM [facility] REPOSITORY TYPE CODE TESTS RESULT OUT OF RANGE REFERENCE UNITS LAB L503.6550 8-252 ng/mL Normal FERRITIN 128 Performed By: #### L501.5200, L503.6550 #### [facility] [address] [place], [address] RAPID PLASMIN REAGIN Collected: 04/20/2018 Status: F Source: [place] (RPR) 9:02 AM [facility] REPOSITORY TYPE CODE TESTS RESULT OUT OF REFERENCE UNITS RANGE LAB L700.5000 NONREACTIVE NONREACTIVE Normal RPR Performed By: #### L700.5000 #### [facility] [address] [place], [address] IMMUNOGLOBULIN E Collected: 04/20/2018 Status: F Source: [place] 9:02 AM [facility] REPOSITORY TYPE CODE TESTS RESULT OUT OF RANGE REFERENCE UNITS LAB L3200.1600 0-100 IU/mL Normal IMMUNO E 11 Result Comment: Performed at: - [facility] [id number] Digital Printer Operator: Hemanth Ibarra MD, Phone: [phone] Performed By: #### L3200.1600 #### [facility] (refer to report for specific site) refer to report for address and phone number THYROID STIM HORMONE Collected: 03/23/2018 Status: F Source: [place] (TSH) 12:20 PM [facility] REPOSITORY TYPE CODE TESTS RESULT OUT OF RANGE REFERENCE UNITS LAB L501.9520 0.358-3.74 uIU/mL Normal TSH 1.68 Performed By: #### L501.9520 #### [facility] [address] [facility]. [place], [place], [address] PROTHROMBIN TIME W/INR Collected: 03/23/2018 Status: F Source: [place] 12:20 PM [facility] REPOSITORY TYPE CODE TESTS RESULT OUT OF RANGE REFERENCE UNITS LAB L300.4150 11.7-14.9 SECONDS Normal PROTIME 12.7 LAB L300.4200 Normal INR 1.0 Performed By: #### L300.3900, L300.4310 #### [facility] [address] [facility] [place], [place], [address] PARTIAL THROMBOPLAST Collected: 03/23/2018 Status: F Source: [place] TIME 12:20 PM [facility] REPOSITORY TYPE CODE TESTS RESULT OUT OF RANGE REFERENCE UNITS LAB L300.4310 24.1-36.2 Seconds Normal PTT 31.4 Performed By: #### L300.3900, L300.4310 #### [facility] [address] [place], [place], [address] CBC W/DIFF, AUTOMATED Collected: 03/23/2018 Status: F Source: [place] 12:20 PM [facility] REPOSITORY TYPE CODE TESTS RESULT OUT OF [...] Lymph 2.47 Performed By: #### L100.0100 #### [facility] [address] [place], [place], [id number] THROMBIN TIME Collected: 03/23/2018 Status: F Source: [place] 12:20 PM [facility] REPOSITORY TYPE CODE TESTS RESULT OUT OF RANGE REFERENCE UNITS LAB L4500.9300 0.0-23.0 sec Normal Thrombin Time 17.8 Result Comment: Performed at: - [facility] [address] [id number] Digital Printer Operator: Hemanth Ibarra MD, Phone: [phone] Performed By: #### L4500.9300 #### [facility] (refer to report for specific site) refer to report for address and phone number PT D/C SUMMARY (1) Observed: 12/01/2017 Status: F Source: [place] 6:50 AM [facility] REPOSITORY [facility] [address] [place] [address] Fax REHABILITATION SERVICES DISCHARGE SUMMARY MR#: [id number] Acct: [id number] Name: MAURICIO LEWIS Rep #: [id number] : 1960 57 From: Julius Subramanian DPT, [...] please feel free to call me at [phone]. Thank you for the referral of this patient. Sincerely, Julius Subramanian DPT, OC <Electronically signed by Julius Subramanian DPT, ANDREEA, CSCS> 12/01/17 0650 CC: Nicole Dillard MD; Julius Gregorio MD EBG Signed INITAL EVALUATION (1) Observed: 10/02/2017 Status: F Source: [place] - PT 9:22 AM [facility] REPOSITORY [facility] [address] [place] [address] Fax REHABILITATION SERVICES INITIAL EVALUATION MR#: [id number] Acct: [id number] Name: MAURICIO LEWIS Rep #: [id number] : 1960 57 From: ANDREEA Ballard DPT, CSCS Referring Dr.: Nicole Dillard MD Status: REG RCR Insurance: MED [employer] SELF PAY INSURANCE Patient's Visit Information MAURICIO LEIWS is a 57 year old F referred [...] sitting. 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 Missed the first day of pain but [...] to be FAXED BACK to us at [phone] for Medicare purposes. Please let me know if there are questions or concerns regarding this plan of care. Physician Signature: Date: <Electronically signed by Julius Subramanian DPT, OCS, CSCS> 10/02/17 09 CC: Nicole Dillard MD; Julius Gregorio MD EBG Signed For Medicare only, by signing this I certify the plan of care. Physicians Signature Date ORTHOPEDIC VISIT Observed: 09/12/2017 Status: F Source: [place] REPORT 2:23 PM [facility] REPOSITORY [facility] Orthopaedics AND Sports Medicine [address] [place] [address] OFFICE VISIT Date of Service: 09/09/17 MR#: [id number] Acct: [id number] Name: MAURICIO LEWIS Rep #: [id number] : 1960 Provider: Nicole Dillard MD Age/Sex: 57/F Location: [facility] Status: Signed Intake Vital Signs09/09/17 Height 5 [...] program. 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 Follow up as needed. Plan of [...] F Source: [place] BENDING VIEWS 9:22 AM [facility] REPOSITORY [facility] Imaging Services [address] [place] [address] L/S Spine Comp/w Bending Views MR#: [id number] Acct: [id number] Name: MAURICIO LEWIS Rep #: [id number] : 1960 F 57 From: Duy Campo MD PCP: Julius Gregorio MD Status: REG CLI Study: L/S Spine Comp/w Bending Views Date of Exam: 09/09/17 Exam# [id number] Ordering Dr: Nicole Dillard MD STUDY: X-RAY [...] CC: Nicole Dillard MD; Julius Gregorio MD Sed Special Education Teacher: Signed ALLERGIES ALLERGIES DATE TYPE / CODE NAME / CODE REACTION SEVERITY SOURCE 09/05/2017 Drug No Known Unknown [facility] Allergy/4160 Allergies/F00 Hospital 33460(SNOMED 7240714(RXNOR Repository CT) M) ENCOUNTERS ENCOUNTERS ADMIT/DISCHARGE ACCOUNT ADMITTING ENCOUNTER LOCATION SOURCE NUMBER CLASS 08/07/2018 [id number] Ambulatory [place] [facility] ing:MRI Repository 07/29/2018 [id number] Ambulatory [place] [facility] 0 [facility] ing:LAB Repository 07/01/2018 [id number] Amb[facility] 4 [facility] ing:CVS Repository 06/24/2018 [id number] Amb[facility] [place] [facility] ing:MFPLAB Repository 04/20/2018 [id number] Ambulatory [place] [facility] 1 [facility] ing:MFPLAB Repository 03/23/2018 [id number] [facility] ing:MTLAB Repository 11/28/2017/ [id number] Ambulatory [place] 8 6 [facility] ing:PT Repository 09/09/2017 [id number] Ambulatory [place] 5 [facility] ing:HPRAD Repository 09/09/2017/ [id number] Ambulatory BMSBuilding:B [facility] 8 7 [place] Repository PAYERS PAYERS ENCOUNTER GUARANTOR PAYER SUBSCRIBER SOURCE 08/07/2018 MAURICIO [id number] Primary MAURICIO CHAPIN: [place] iDiDiDEK Insurance:MEDICAL [id number] [address]Iwn: (510) Number: Repository [phone] () [id number] Date:0831-37-28PG [address] [place] [address]DK: 08/07/2018 Secondary NOT GIVENUNK [facility] Insurance:SELF PAY [facility] Number: Effective Repository Date:2018-08-03 07/29/2018 MAURICIO [id number] Primary MAURICIO CHENDOB: [place] [facility] Insurance:MEDICAL [id number] [address]Weg: (510) Number: Repository [phone] () [id number] Date:1276-23-97KQ [address] [address]QM: 07/29/2018 Secondary NOT GIVENUNK [facility] Insurance:SELF PAY [facility] Number: Effective Repository Date:2018-07-29 07/01/2018 MAURICIO [id number] Primary Insurance:MED MAURICIO CHENDOB: [facility] [address] [facility] 1712[place] Number: [facility] [id number]: [phone]) [id number] Repository [phone] () Date:9120-03-44DX [address] [address]BAMF[place], [place] [address]FQ: CHECK WEBSITE 07/01/2018 Secondary NOT GIVENUNK [facility] Insurance:SELF PAY [facility] Number: Effective Repository Date:2018-06-24 06/24/2018 MAURICIO [id number] Primary Insurance:MED MAURICIO CHENDOB: [place] [facility] [id number], [place] Number: [facility] [id number]: [phone]) [id number] Repository [phone] () Date:1784-70-57AQ [address] [address], [place] [address]SB: CHECK WEBSITE 06/24/2018 Secondary NOT GIVENUNK [facility] Insurance:SELF PAY [facility] Number: Effective Repository Date:2018-06-24 04/20/2018 MAURICIO [id number] Primary Insurance:MED MAURICIO GUTIÉRREZB: [place] [facility] MUTUAL TPAPolicy [id number] include 234 beds at the [facility] [place] Number: [facility] [id number]: [phone] [id number] Repository [phone] (HP) Date:2476-96-32MV [address] [address], [place] [address]GZ: CHECK WEBSITE 04/20/2018 Secondary NOT GIVENUNK [place] Insurance:SELF PAY [facility] Number: Effective Repository Date:2018-04-20 03/23/2018 MAURICIO [id number] Primary Insurance:MED MAURICIO GUTIÉRREZB: [facility] [facility] MUTUAL TPAPolicy [id number], [place] Number: [facility] [id number]: [phone]) [id number] Repository [phone] (HP) Date:5879-20-47ZI [address] [address]QOMHPSGDO, [place] [address]AU: CHECK WEBSITE 03/23/2018 Secondary NOT GIVENUNK [facility] Insurance:SELF PAY [facility] Number: Effective Repository Date:2018-03-23 11/28/2017 MAURICIO [id number] Primary Insurance:MED MAURICIO GUTIÉRREZB: [place] [facility] MUTUAL TPAPolicy [id number], [place] Number: [facility] [id number]: ([phone]) [id number] Repository [phone] () Date:7601-86-70ZN [address] [address]HQZWOVEX, [place] [address]HM: CHECK WEBSITE 11/28/2017 Secondary NOT GIVENUNK [facility] Insurance:SELF PAY [facility] Number: Effective Repository Date:2017-09-30 09/09/2017 MAURICIO [id number] Primary Insurance:MED MAURICIO GUTIÉRREZB: [place] [facility] MUTUAL TPAPolicy [id number], [place] Number: [facility] [address]Dbd: [phone] [id number] Repository [phone] (HP) Date:3720-74-36WT [address] [address]ZHQRADSYW, [place] [address]PG: CHECK WEBSITE 09/09/2017 Secondary NOT GIVENUNK [facility] Insurance:SELF PAY [facility] Number: Effective Repository Date:2017-09-09 09/09/2017 MAURICIO [id number] Primary Insurance:PEÑA GUTIÉRREZB: [facility] 1028-11-25[place]HO[place], [place] Number: [facility] [id number]: ([phone]) [id number] Repository [phone] () Date:9599-10-07SC [address] [address]GYMJNHFZK, [place] [address]AR: CHECK WEBSITE 09/09/2017 Secondary NOT GIVENUNK [facility] Insurance:SELF PAY [facility] Number: Effective Repository Date:2017-07-29
== END ==
PROVIDERS: Family Provider Family Medicine; PCP Family Medicine; Referring Provider Psychiatry & Neurology Neurology; Visit Provider Psychiatry & Neurology Neurology
DX: R41.3 Other amnesia (principal)
CPT/HCPCS: 36415; 80051; 82607; 84443; 86592

== ENCOUNTER → 2018-08-07 16:50 | Outpatient (CLI) | payer OTHER, SELFPAY ==
--- NOTE | 2018-08-07 17:12 | MRI_ITS ---
STUDY: MRI BRAIN WITHOUT CONTRAST REASON FOR EXAM: Female, 58 years old. Short-term memory issues and sleeping pattern changes TECHNIQUE: Standardized multiplanar fat and water weighted pulse sequences were obtained. COMPARISON: None. FINDINGS: Normal size of the ventricles and extra-axial spaces for the patient's age. Normal white matter tracts of the supratentorial brain. Normal bilateral basal ganglia. Normal thalami. There is no extra-axial fluid accumulation. Normal flow voids within the major intracranial circulation suggesting patency by spin echo criteria. Empty sella. Normal tectal plate and pineal gland. Normal midbrain, charli and medulla. Normal cerebellum. Normal basal cisterns. Normal bilateral temporal bones. Normal bilateral internal auditory canals. No demonstrated orbital abnormality, within the constraints of a routine brain study. Normal visualized paranasal sinuses. Normal calvarium and skull base. Normal visualized soft tissue structures. Normal visualized upper cervical spine. MRI/Brain without Contrast IMPRESSION: Empty sella. No evidence of infarct or hemorrhage. Electronically Signed: Hemanth Khoury MD at 2:50 EST Tel , Service support ,
== END ==
PROVIDERS: Family Provider Family Medicine; PCP Family Medicine; Referring Provider Psychiatry & Neurology Neurology; Visit Provider Psychiatry & Neurology Neurology
DX: R41.3 Other amnesia (principal)
CPT/HCPCS: 70551

== ENCOUNTER → 2018-08-12 20:00 | Outpatient (CLI) | payer OTHER, SELFPAY | PROVIDERS: Family Provider Family Medicine; PCP Family Medicine; Referring Provider Psychiatry & Neurology Neurology; Visit Provider Psychiatry & Neurology Neurology | DX: G47.33 Obstructive sleep apnea (adult) (pediatric) (principal) | CPT/HCPCS: 95810 ==

== ENCOUNTER → 2018-12-10 15:59 | Outpatient (CLI) | payer OTHER, SELFPAY ==
[2018-12-15 16:27] LABS: HPV Reflexed? NOT INDICATED
== END ==
PROVIDERS: Family Provider Family Medicine; PCP Family Medicine; Referring Provider Family Medicine; Visit Provider Family Medicine
DX: Z01.419 Encounter for gynecological examination (general) (routine) without abnormal findings (principal)
CPT/HCPCS: 88175; G0145

== ENCOUNTER 2019-02-10 17:50 | Observation (INO) | payer OTHER, SELFPAY ==
[2019-02-10] VITALS (8 sets, daily range): BP systolic 104–113; BP diastolic 61–81; PULSE 58–65; RESP 16–22; TEMP 36.4; O2SAT 96–100; BMI 22.6; BMI 21.4; BMI 21.5
--- NOTE | 2019-02-10 17:59 | EKG12_ITS ---
Test Reason : CP Blood Pressure : / mmHG Vent. Rate : 063 BPM Atrial Rate : 063 BPM P-R Int : 148 ms QRS Dur : 102 ms QT Int : 434 ms P-R-T Axes : 059 003 009 degrees QTc Int : 444 ms Normal sinus rhythm Nonspecific T wave abnormality Abnormal ECG Confirmed by GENNY SINGH, BHAVESH ([id number]), electronic news gathering editor BRI AKINS ([id number]) on 02/11/2019 1:12:02 PM Referred By: ALEKSANDRA GUTIERREZ MD Confirmed By:ISAAC ROYAL MD
--- NOTE | 2019-02-10 17:59 | RAD_ITS ---
STUDY: X-RAY CHEST REASON FOR EXAM: Female, 58 years old. Chest pain TECHNIQUE: Frontal view of the chest COMPARISON: 09/24/2016 FINDINGS: The lungs are clear. There are no pleural effusions. There is no pneumothorax. The heart is normal in size. The visualized osseous structures are within normal limits. RAD/Chest 1 View (Portable) IMPRESSION: No acute thoracic pathology. Electronically Signed: Gregg Jaquez, at 18:16 EDT Tel , Service support ,
--- NOTE | 2019-02-10 17:59 | NURSING ---
NO OLD EKGS
[2019-02-10 18:13] LABS: Absolute Lymphocyte Count 3.67 X10^3/uL (0.83-4.51); Absolute Neutrophil Count 3.6 X10^3/uL (2.0-7.7); Basophil# 0.05 X10^3/uL; Basophil% 0.6 % (0-1); Eosinophil# 0.15 X10^3/uL; Eosinophils% 1.8 % (0-5); Hematocrit 40.7 % (37-47); Hemoglobin 13.3 g/dL (12.0-15.0); Lymphocyte # 3.67 X10^3/ul (4.0); Lymphocyte % 44.8 % (19-41); Mean Corp Hgb Conc 32.7 g/dL (32-36); Mean Corpuscular Hgb 30.1 pg (27.0-32.0); Mean Corpuscular Volume 92.1 fL (81-99); Mean Platelet Vol. 10.1 fl (6.2-12.0); Monocyte# 0.68 X10^3/uL; Monocyte% 8.3 % (0-10); NRBC Flagged by Analyzer 0 % (0-5); Neutrophil # 3.64 X10^3/uL (2.7-7.7); Neutrophil % 44.4 % (47-70); Platelet Count 220 K/mm3 (150-450); RBC Distribution Width CV 13.2 % (11.6-14.6); RBC Distribution Width SD 44.4 fl (35.1-43.9); Red Blood Count 4.42 M/mm3 (4.2-5.4); White Blood Count 8.2 K/mm3 (4.4-11.0)
--- NOTE | 2019-02-10 18:17 | ED.DCSUM_ITS ---
- ER Visit Summary Date of Service: 02/10/19 Chief Complaint: Chest pain History of Present Illness: The patient is a 58 F no significant past medical history. Patient states today after she had to work she had intermittent discomfort is midsternal. No radiation. Mild cough. No nausea, vomiting or diarrhea. No melena. No fever or chills. No hemoptysis. Is not pleuritic. She is never had a cardiac history. No history of DVT or PE. No recent exertional dyspnea. She has had no travel, surgery or immobilization. No calf pain or swelling. Physical Examination: Middle-aged female no acute distress. Vital signs are stable. Afebrile. Pulse ox 96% on room air no hypoxia. HEENT exam unremarkable. Neck nontender no lymphadenopathy. No thyromegaly. Lungs clear to auscultation bilaterally. Equal symmetrical. Heart regular rate and rhythm no murmur rate about 60. Chest wall nontender. Abdomen soft nontender. Please moves all 4. Calves nontender no edema no cords. Neurologically she is awake and alert with no focal motor deficits. Radial pulses are equal symmetrical. Back is nontender. Test Results: Her initial EKG in ER shows a sinus rhythm rate of 63 with inverted T waves in V3 and V4. No old EKG available for comparison. Chest x-ray is normal cardiac silhouette mediastinum read both myself and the radiologist. Portable one view. CBC normal. Chemistries unremarkable normal gap and creatinine. Troponin normal. Emergency Department Course and Treatment: Patient will undergo cardiac work-up. P.o. aspirin. Treatment Plan: Repeat exam at 20 10 PM patient is doing well. Currently she feels fine. She and I discussed that she is chest pain of uncertain etiology. She has some nonspecific abnormalities her EKG. She is willing to be admitted for inpatient stress testing. At the hospitalist on page. Disposition: Admission Impression: Acute chest pain of uncertain etiology This note was generated with [employer] dictation software. It may contain incorrect words, spelling, and punctuation that were not noted in review of the chart prior to signing ED Disposition - Plan for ED Patient: Referrals: Julius Gregorio MD [Primary Care Provider] -
[2019-02-10] MEDS: Aspirin 81 MG TAB.CHEW 324 MG PO (18:29)
[2019-02-10 18:40] LABS: Anion Gap 4 (5-15); BUN 21 mg/dL (7-18); BUN/Creat Ratio 27.4 RATIO (10-20); Calcium,Total 9.2 mg/dL (8.5-10.1); Chloride 108 mmol/L (98-107); Creatinine, Serum 0.77 mg/dL (0.55-1.02); EST Glomerular Filtration Rate 81 mL/min (>60); Est Glom Filt Rate - Afr Amer 99 mL/min (>60); Estimated Creatinine Clearance 64.27 ml/min; Glucose 102 mg/dL (74-106); Potassium 4.1 mmol/L (3.5-5.1); Sodium Level 139 mmol/L (136-145)
--- NOTE | 2019-02-10 20:41 | HP.PCM_ITS ---
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 Earlier she had chest pain without associated shortness of breath, palpitation, nausea or vomiting. She stated it hurts when she takes deep breathing. She went to PCP and had an EKG done which shows T inversion in V2 and V3 and was sent to ER. Patient father has diabetes otherwise no GA/CHF and first-degree family relative. [] Past Medical History Past Medical History (Chronic Problems): Chronic Problems (Last Updated 01/26/19 @ 09:53 by Farideh King) Cognitive change (Chronic) YI (obstructive sleep apnea) (Chronic) Disorder of right rotator cuff (Chronic) Leg cramps (Chronic) Raynaud phenomenon (Chronic) Osteoporosis (Chronic) Chronic back pain (Chronic) Medical History: Medical History (Last Updated 01/26/19 @ 09:53 by Farideh King) Cognitive change (Chronic) R41.89 YI (obstructive sleep apnea) (Chronic) G47.33 Disorder of right rotator cuff (Acute) M67.911 Leg cramps (Acute) R25.2 Raynaud phenomenon (Chronic) I73.00 Osteoporosis (Chronic) M81.0 Chronic back pain (Chronic) M54.9, G89.29 Insomnia (Acute) G47.00 Allergies No Known Allergies Allergy (Verified 02/10/19 17:51) Home Medications: Ambulatory Orders Medication Instructions Recorded calcium carbonate-vitamin D3 600 1 cap PO BID 09/05/17 mg (1,500 mg)-400 unit capsule [place]-3 Fatty Acids/Fish Oil [Fish 1 ea PO BID 02/10/19 Oil 1,000 mg Capsule] Smoking Status: Never smoker Review of Systems Constitutional: Denies: Chills, Fever, Weight Change HEENT: Denies: Head Aches, Sinus Congestion, Sinus Drainage Cardiovascular: Reports: Chest Pain. Denies: Palpitations Respiratory: Denies: Cough, Shortness of breath at rest, Sputum production Gastrointestinal: Denies: Abdominal Pain, Nausea, Vomiting Genitourinary: Denies: Dysuria Musculoskeletal: Denies: Joint Pain, Joint Tenderness Skin: Denies: Rash, Wounds Neurological: Denies: Numbness, Tingling, Focal weakness Psychiatric: Denies: Anxiety, Depression, Homicidal Ideations, Suicidal Ideations Hematologic/ Lymphatic: Denies: Easy Bruising, Easy Bleeding VTE Information - Inpt Only VTE Present on Admission: No VTE Mechan Device Prophylaxis: None VTE Pharm Prophylaxis ordered?: Yes Patient Problems: Active and Suspected Problems (Last Updated 01/26/19 @ 09:53 by Farideh King) Atypical chest pain (Acute) - Physical Exam General: Alert, Oriented x3, Cooperative HEENT: Atraumatic, PERRLA, EOMI, Normocephalic Neck: Supple, No JVD, Negative Carotid Bruits Lungs: Clear to auscultation, Normal air movement, No rhonchi, No wheeze, No rales Cardiovascular: Regular rate, Regular Rhythm, Normal S1, Normal S2, No murmurs Abdomen: Bowel Sounds Present, Soft, Non Tender, Non-Distended Extremities: No edema, Capillary Refill Less than 3 Seconds Skin: No rashes, No breakdown Musculoskeletal: No Tenderness to Palpation of Joints or Extremities Neurological: Cranial nerves II-XII grossly intact Psych/Mental Status: Normal Affect, Appropriate Vital Signs Temp Pulse Resp BP Pulse Ox 97.6 F L 61 21 H 104/75 100 02/10/19 17:52 02/10/19 19:51 02/10/19 19:51 02/10/19 19:51 02/10/19 19:51 Oxygen Flow Rate (L/min) 2 Oxygen Delivery Method Room Air Weight: 127 lb 6.835 oz Body Mass Index (BMI) 22.6 Laboratory Tests Past 24 Hrs 02/10/19 02/10/19 18:07 18:07 WBC 8.2 RBC 4.42 Hgb 13.3 Hct 40.7 MCV 92.1 MCH 30.1 MCHC 32.7 RDW Std Deviation 44.4 H RDW Coeff of [place] 13.2 Plt Count 220 MPV 10.1 Immature Gran % (Auto) 0.100 Neut % (Auto) 44.4 L Lymph % (Auto) 44.8 H [place] % (Auto) 8.3 Eos % (Auto) 1.8 Baso % (Auto) 0.6 Absolute Neuts (auto) 3.6 Absolute Lymphs (auto) 3.67 Nucleated RBC % 0 Sodium 139 Potassium 4.1 Chloride 108 H Carbon Dioxide 27.0 Anion Gap 4 L BUN 21 H Creatinine 0.77 Estim Creat Clear Calc 64.27 Est GFR (MDRD) Af Amer 99 Est GFR (MDRD) Non-Af 81 BUN/Creatinine Ratio 27.4 H Glucose 102 Calcium 9.2 Troponin I < 0.015 Assessment/Plan All Active Problems (Last Updated 01/26/19 @ 09:53 by Farideh King) Atypical chest pain (Acute) Insomnia (Acute) The patient is a 58 year old F with no history of cardiac problem came to ED with midsternal chest pain in the morning. Earlier she had chest pain without associated shortness of breath, palpitation, nausea or vomiting. She stated it hurts when she takes deep breathing. She went to PCP and had an EKG done which shows T inversion in V2 and V3 and was sent to ER. In ED, first troponin negative. 1. Atypical chest pain: Patient is being admitted in PCU on cardiac telemetry for observation. ULISES risk score is 2. In ED, EKG shows slight T inversion in V3 and V4. Normal sinus rhythm at 63 bpm. Deep QR pattern in V1 V2 leads. Cycle cardiac enzymes. If cardiac enzymes negative, treadmill nuclear stress test tomorrow morning. She does not have history of hypertension, diabetes mellitus, dyslipidemia or family history of cardiac disease. Fasting profile tomorrow a.m. [] 2. Patient has chronic history of leg cramps but no cause found. Since probably secondary to increased anxiety, insomnia: Magnesium and phosphorus ordered. K4.1. Sodium 139. 3. Other chronic comorbidities include rainouts phenomenon disorder of right radial cough, obstructive sleep apnea and chronic back pain: Stable. Home medication reconciliation done. Code Visit Inpatient E&M: 02913 Init Hosp L3
--- NOTE | 2019-02-10 20:50 | EKG12_ITS ---
Test Reason : CP ADMISSION Blood Pressure : / mmHG Vent. Rate : 054 BPM Atrial Rate : 054 BPM P-R Int : 152 ms QRS Dur : 104 ms QT Int : 458 ms P-R-T Axes : 049 012 012 degrees QTc Int : 434 ms Sinus bradycardia Otherwise normal ECG When compared with ECG of 10-FEB-2019 17:57, MANUAL COMPARISON REQUIRED, DATA IS UNCONFIRMED Confirmed by LAMAR TEJADA ([id number]), department editor ELEANOR GALLEGOS ([id number]) on 02/17/2019 3:43:26 PM Referred By: DANIEL Confirmed By:LAMAR TEJADA
[2019-02-10 21:33] LABS: Magnesium 2.2 mg/dL (1.6-2.6); Phosphorus 3.7 mg/dL (2.5-4.9)
[2019-02-10] MEDS: Famotidine 20 MG Tablet PO (22:28)
[2019-02-10] MEDS: Atorvastatin Calcium 40 MG Tablet PO (22:28)
[2019-02-11] VITALS (9 sets, daily range): BP systolic 89–103; BP diastolic 52–64; PULSE 52–75; RESP 16; TEMP 36.5–36.8; O2SAT 96–98
[2019-02-11] MEDS: Aspirin E.C. 81 MG Tablet PO (05:48)
--- NOTE | 2019-02-11 05:55 | EKG12_ITS ---
Test Reason : AM EKG Blood Pressure : / mmHG Vent. Rate : 059 BPM Atrial Rate : 059 BPM P-R Int : 162 ms QRS Dur : 102 ms QT Int : 462 ms P-R-T Axes : 064 -01 008 degrees QTc Int : 457 ms Sinus bradycardia Otherwise normal ECG When compared with ECG of 10-FEB-2019 21:10, MANUAL COMPARISON REQUIRED, DATA IS UNCONFIRMED Confirmed by LAMAR TEJADA ([id number]), news copy editor ELEANOR GALLEGOS ([id number]) on 02/17/2019 3:44:03 PM Referred By: DANIEL Confirmed By:LAMAR TEJADA
[2019-02-11 06:35] LABS: Cholesterol 201 mg/dL (200); High Density Lipoprotein 68 mg/dL; Thyroid Stim Hormone (TSH) 1.66 uIU/mL (0.358-3.74); Triglycerides 139 mg/dL; Very Low Density Lipoprotein 28 mg/dL (5-40)
[2019-02-11] MEDS: Famotidine 20 MG Tablet PO (08:25)
--- NOTE | 2019-02-11 10:55 | STRESSREP_ITS ---
Stress Test Report Date: 02/11/2019 Procedure: Exercise tolerance test/imaging study Indications: Chest pain Consent: Per the patient Procedure: The patient exercised on a Robbie protocol for 9 minutes achieving a peak heart rate of 137 bpm (85 % predicted maximal heart rate) with a peak blood pressure 112/70 mmHg and a peak MET capacity of 10.1 METs. The baseline ECG demonstrated sinus bradycardia. The peak exercise ECG demonstrated sinus tachycardia with about [address] depression in the inferior leads and about 1 to [address] depression in the lateral leads. EKG during recovery revealed sinus bradycardia with return of ST segments to its baseline [There were no cardiac dysrhythmias pretest, during exercise, or recovery]. The functional capacity was considered silent for age. There was [no complaint of chest discomfort during exercise or recovery]. The examination was discontinued secondary to dyspnea. Impression: 1. Technically adequate (percent predicted maximal heart rate greater than 85%) exercise tolerance test 2. Stress test is negative for exercise-induced EKG changes of ischemia 3. The test test negative for exercise-induced chest pain 4. Functional capacity is excellent for age. 5. Nuclear images pending Myocardial perfusion imaging study: Technique: The patient was injected with 10.9 mCi of technetium 99m Cardiolite and subsequently rest SPECT Cardiolite nuclear imaging was obtained in the horizontal long, vertical long, and short axis views. The patient exercised on a Robbie protocol. Please see above for details. The patient was injected with 32.1 mCi of technetium 99m Cardiolite and subsequently stress SPECT Cardiolite nuclear imaging was obtained in the horizontal long, vertical long, and short axis views. A gated Cardiolite study at peak stress was obtained. Interpretation: Rest and stress SPECT Cardiolite nuclear imaging status post realignment, normalization, and attenuation correction, demonstrates normal myocardial radioisotope uptake. The gated Cardiolite study demonstrates no significant regional wall motion abnormalities. The reported LVEF is greater than 70%. Impression: 1. There is no evidence of significant ischemia or infarction. 2. The gated Cardiolite study reports an LVEF of greater than 70 %. This note was generated with Cloud[employer] software. It may contain incorrect words, spelling, and punctuation that were not noted in checking the note before signing.
--- NOTE | 2019-02-11 11:37 | PN.CARD_ITS ---
Subjectve: The patient is a 58 year old F with no history of cardiac problem came to ED with midsternal tightness that started yesterday morning and lasted nearly the whole day and eventually slowly went away. The chest pain was worse when she took deep inspiration and when she moved her arms certain ways. Her chest pain has resolved and she has no further chest pain. She underwent stress testing which revealed no significant ischemia. She did not have any chest pain with exertion. She was able to walk 9 minutes on the stress test and her heart rate went up to Patient father has diabetes otherwise no ID/CHF and first-degree family relative. Objective: Vital Signs Temp Pulse Resp BP Pulse Ox 97.8 F 59 L 16 95/55 L 98 02/11/19 08:21 02/11/19 08:29 02/11/19 08:21 02/11/19 08:21 02/11/19 11:16 Oxygen Flow Rate (L/min) 2 Oxygen Delivery Method Room Air Weight: 125 lb 0.034 oz Body Mass Index (BMI) 21.4 Intake and Output for Last 24 Hours 02/09/19 02/10/19 02/11/19 23:59 23:59 23:59 Intake Total 330 / 330 Balance 330 / 330 02/10/19 18:07: WBC 8.2, RBC 4.42, Hgb 13.3, Hct 40.7, MCV 92.1, MCH 30.1, MCHC 32.7, Plt Count 220, MPV 10.1, Immature Gran % (Auto) 0.100, Neut % (Auto) 44.4 L, Lymph % (Auto) 44.8 H, [place] % (Auto) 8.3, Eos % (Auto) 1.8, Baso % (Auto) 0.6, Absolute Neuts (auto) 3.6, Nucleated RBC % 0 02/10/19 18:07: Sodium 139, Potassium 4.1, Chloride 108 H, Carbon Dioxide 27.0, Anion Gap 4 L, BUN 21 H, Creatinine 0.77, Est GFR (MDRD) Af Amer 99, Est GFR (MDRD) Non-Af 81, BUN/Creatinine Ratio 27.4 H, Glucose 102, Calcium 9.2, Troponin I < 0.015 02/10/19 21:03: Phosphorus 3.7, Magnesium 2.2 02/10/19 21:03: Troponin I < 0.015 02/10/19 23:35: Troponin I < 0.015 02/11/19 05:35: Triglycerides 139, Cholesterol 201 H, LDL Cholesterol 105, VLDL Cholesterol 28, HDL Cholesterol 68 Rhythm: EKG: ECHO: Stress Test: Cardiac Cath: PCI: CT Surgery: Holter monitor: EPS: PPM: CXR: Chest CT Scan: Medical Necessity - Tobacco Use Smoking Status: Never smoker
--- NOTE | 2019-02-11 12:05 | PCM.CONS.C ---
Problem List (1) Atypical chest pain Status: Acute Reason for Consult Date of Consultation: 02/11/19 History of Present Illness: 58-year-old female coming to the hospital because of chest pain that started yesterday morning. Chest pain was a sensation of tightness in the retrosternal region. It was worse with deep inspiration and moving her shoulders certain ways. It lasted nearly the entire day yesterday and towards the end of the day it slowly went away. She has not had any further chest pain. She underwent stress testing which did not reveal any ischemia. She walked for 9 minutes and did not have any chest pain. Her heart rate went up to 137 bpm. Cardiology consult was requested as she had some sinus pauses on telemetry. The sinus pauses were between 3 AM to 5 AM this morning. Patient was asymptomatic and asleep during this time. She denies any episodes of lightheadedness, dizziness, syncope etc. Review of systems: All else is negative except in the HPI. All systems reviewed. Past Medical History Allergies/Adverse Reactions: Allergies No Known Allergies Allergy (Verified 02/10/19 17:51) Home Medications: Ambulatory Orders Medication Instructions Recorded calcium carbonate-vitamin D3 600 1 cap PO BID 09/05/17 mg (1,500 mg)-400 unit capsule [place]-3 Fatty Acids/Fish Oil [Fish 1 ea PO BID 02/10/19 Oil 1,000 mg Capsule] Past Medical History (Chronic Problems): Chronic Problems (Last Updated 01/26/19 @ 09:53 by Farideh King) Cognitive change (Chronic) YI (obstructive sleep apnea) (Chronic) Disorder of right rotator cuff (Chronic) Leg cramps (Chronic) Raynaud phenomenon (Chronic) Osteoporosis (Chronic) Chronic back pain (Chronic) Smoking Status: Never smoker Objective: Vital Signs Temp Pulse Resp BP Pulse Ox 97.8 F 59 L 16 95/55 L 98 02/11/19 08:21 02/11/19 08:29 02/11/19 08:21 02/11/19 08:21 02/11/19 11:16 Oxygen Flow Rate (L/min) 2 Oxygen Delivery Method Room Air Weight: 125 lb 0.034 oz Body Mass Index (BMI) 21.4 Intake and Output for Last 24 Hours 02/09/19 02/10/19 02/11/19 23:59 23:59 23:59 Intake Total 330 / 330 Balance 330 / 330 General: Awake, Alert, Oriented x 3 HEENT: PERRL, EOMI, Sclera Non Icteric Neck: Supple, Good ROM, No Lymph Node Enlargement Lungs: Clear to auscultation Cardiovascular: Regular Rhythm, Normal S1, Normal S2, No Murmurs, No Rubs, No Gallops Abdomen: Soft Extremities: No edema Skin: No Rashes Psych/Mental Status: Appropriate 02/10/19 18:07: WBC 8.2, RBC 4.42, Hgb 13.3, Hct 40.7, MCV 92.1, MCH 30.1, MCHC 32.7, Plt Count 220, MPV 10.1, Immature Gran % (Auto) 0.100, Neut % (Auto) 44.4 L, Lymph % (Auto) 44.8 H, [place] % (Auto) 8.3, Eos % (Auto) 1.8, Baso % (Auto) 0.6, Absolute Neuts (auto) 3.6, Nucleated RBC % 0 02/10/19 18:07: Sodium 139, Potassium 4.1, Chloride 108 H, Carbon Dioxide 27.0, Anion Gap 4 L, BUN 21 H, Creatinine 0.77, Est GFR (MDRD) Af Amer 99, Est GFR (MDRD) Non-Af 81, BUN/Creatinine Ratio 27.4 H, Glucose 102, Calcium 9.2, Troponin I < 0.015 02/10/19 21:03: Phosphorus 3.7, Magnesium 2.2 02/10/19 21:03: Troponin I < 0.015 02/10/19 23:35: Troponin I < 0.015 02/11/19 05:35: Triglycerides 139, Cholesterol 201 H, LDL Cholesterol 105, VLDL Cholesterol 28, HDL Cholesterol 68 Rhythm: EKG: ECHO: Stress Test: Cardiac Cath: PCI: CT Surgery: Holter monitor: EPS: PPM: CXR: Chest CT Scan: Assessment/Plan 1. Chest pain: Atypical by history. Stress test is negative for ischemia. No further work-up required for this. 2. Sinus pauses: This was happening during sleep. Patient does not have any symptoms that could be related to bradycardia. She was able to mount a tachycardic response on the treadmill. She walked for 9 minutes and her heart rate went up to 137 bpm. She does not require any further work-up for this at this time. She can follow-up with us on an as needed basis.
--- NOTE | 2019-02-11 15:08 | PCM.DC ---
- Discharge Diagnoses Current Active Problems: Current Active and Chronic Problems (Last Updated 01/26/19 @ 09:53 by Farideh King) Atypical chest pain (Acute) You will use the following diet at home:: No restrictions Discharge Activity: Return to Normal Activity Call your doctor if you observe: Shortness of breath, Dizziness, Fainting spells, Chest pain Additional Instructions: If you have recurrent symptoms including chest pain, dizziness, passing out, recommend immediate follow-up with cardiology and also recommend cardiac event monitor to further evaluate for arrhythmia (irregular heart rhythm). Allergies/Adverse Reactions: Allergies No Known Allergies Allergy (Verified 02/10/19 17:51) Medications to take at Discharge calcium carbonate-vitamin D3 600 mg (1,500 mg)-400 unit capsule 1 cap PO BID 09/05/17 [place]-3 Fatty Acids/Fish Oil [Fish Oil 1,000 mg Capsule] 1 ea PO BID 02/10/19 Primary Care Physician: Julius Gregorio MD [Primary Care Provider] - Please follow up with your Primary Care Physician in: 1 Week Test Results: Test results from this visit will be discussed in further detail at your follow-up appointment, if applicable. Please Follow Up With: Andre Saeed DO When: As scheduled 02/17/19 Please Follow Up With: Amanda Dalton MD - [facility] When: 2-4 weeks or sooner if recurrent symptoms Proposed Discharge Date: 02/11/19
--- NOTE | 2019-02-11 16:26 | DS.PCM_ITS ---
Discharge Date and Diagnosis Date of Admission: 02/10/19 Date of Discharge: 02/11/19 - Primary Discharge Diagnosis Active and Suspected Problems (Last Updated 01/26/19 @ 09:53 by Farideh King) 1. Chest pain, ACS ruled out 2. Junctional rhythm/sinus pauses 3. YI 4. Intermittent leg cramping 5. Abnormal nevus right medial calf - Secondary Discharge Diagnosis Chronic Problems (Last Updated 01/26/19 @ 09:53 by Farideh King) Cognitive change (Chronic) YI (obstructive sleep apnea) (Chronic) Disorder of right rotator cuff (Chronic) Leg cramps (Chronic) Raynaud phenomenon (Chronic) Osteoporosis (Chronic) Chronic back pain (Chronic) Hospital Course and Treatment Imaging Results: Diagnostic Data Chest X-Ray 02/10/19 17:59 IMPRESSION: No acute thoracic pathology. Electronically Signed: Gregg Abdiyareli, at 18:16 EDT Tel , Service support , Dr. Dalton- Cardiology Operations: None Procedures: Stress test Summary of Care Provided: The patient is a 58 year old F admitted 02/10/2019 due to chest pain. 1. Chest pain, ACS ruled out-troponin negative. EKG on admission without acute ischemia. Patient underwent stress test which was negative for ischemia. Follow-up with primary care provider in 1 week. 2. Junctional rhythm/sinus pauses-cardiology consulted. Cardiology does not feel her symptoms are related to bradycardia. She had appropriate tachycardic response on treadmill. No further work-up at this time per cardiology. Discussed with patient that if she has further symptoms including chest pain, palpitations or syncope, she is to follow-up with cardiology. Feel patient may benefit from cardiac event monitor for further assessment of junctional rhythm/sinus pauses. Patient reports she had a event monitor which was placed by [facility] at least 10 years ago. She also reports she was worked up at [facility] around the same time where pacemaker was discussed and then after further discussion was not placed. Do feel patient should follow-up closely with cardiology and primary care provider at discharge. 3. YI-patient reports she had sleep study in the distant past. Has follow-up with Dr. Saeed 02/17/2019. 4. Intermittent leg cramping-recommend vascular studies as outpatient. Electrolytes within normal limits. Patient reports cramping is mostly at night although she does report pain occurs with ambulation as well. 5. Abnormal nevus right medial calf-recommended patient follow-up with dermatology given darker pigmented appearance and irregular border. Patient seen and examined prior to discharge. Physical assessment as noted below. Patient is stable for discharge with follow up recommendations as noted above. This patient was seen by KANDY Abad under the supervision of Dr. Franco. - Physical Exam General: Alert, Oriented x3, Cooperative HEENT: Atraumatic, PERRLA, EOMI, Normocephalic Neck: Supple, No JVD, Negative Carotid Bruits Lungs: Clear to auscultation, Normal air movement Cardiovascular: Regular rate, Regular Rhythm, Normal S1, Normal S2, No murmurs Abdomen: Bowel Sounds Present, Soft, Non Tender, Non-Distended Extremities: No clubbing, No cyanosis, No edema, Capillary Refill Less than 3 Seconds Skin: No rashes, No breakdown Musculoskeletal: No Tenderness to Palpation of Joints or Extremities Neurological: Cranial nerves II-XII grossly intact, Neuro grossly intact Psych/Mental Status: Normal Affect, Appropriate Vital Signs Temp Pulse Resp BP Pulse Ox 98 F 56 L 16 89/58 L 96 02/11/19 14:20 02/11/19 15:33 02/11/19 14:20 02/11/19 15:33 02/11/19 14:20 Oxygen Flow Rate (L/min) 2 Oxygen Delivery Method Room Air Weight: 125 lb 0.034 oz Body Mass Index (BMI) 21.4 Orthostatic Vital Signs Start: 02/11/19 15:33 Freq: q24h Status: Active Protocol: Activity Type Activity Date Activity User E-Sign Co-Sign Detail Recorded Client Recorded Date Recorded By Document 02/11/19 15:33 [id number] 02/11/19 15:35 [email or web address] 02/11/19 15:33 Orthostatic Vitals Standing -Blood Pressure (90/60-120/80) 89/64 L -Extremity Use Left Arm -Pulse Rate (60-100) 75 Sitting -Blood Pressure (90/60-120/80) 93/63 -Extremity Use Left Arm -Pulse Rate (60-100) 64 Lying -Blood Pressure (90/60-120/80) 89/58 L -Extremity Use Left Arm -Pulse Rate (60-100) 56 L Intake and Output for Last 24 Hours 02/09/19 02/10/19 02/11/19 23:59 23:59 23:59 Intake Total 570 / 570 Balance 570 / 570 Laboratory Tests Past 24 Hrs 02/10/19 02/10/19 02/10/19 18:07 18:07 21:03 WBC 8.2 RBC 4.42 Hgb 13.3 Hct 40.7 MCV 92.1 MCH 30.1 MCHC 32.7 RDW Std Deviation 44.4 H RDW Coeff of [place] 13.2 Plt Count 220 MPV 10.1 Immature Gran % (Auto) 0.100 Neut % (Auto) 44.4 L Lymph % (Auto) 44.8 H [place] % (Auto) 8.3 Eos % (Auto) 1.8 Baso % (Auto) 0.6 Absolute Neuts (auto) 3.6 Absolute Lymphs (auto) 3.67 Nucleated RBC % 0 Sodium 139 Potassium 4.1 Chloride 108 H Carbon Dioxide 27.0 Anion Gap 4 L BUN 21 H Creatinine 0.77 Estim Creat Clear Calc 64.27 Est GFR (MDRD) Af Amer 99 Est GFR (MDRD) Non-Af 81 BUN/Creatinine Ratio 27.4 H Glucose 102 Calcium 9.2 Phosphorus 3.7 Magnesium 2.2 Troponin I < 0.015 Triglycerides Cholesterol LDL Cholesterol VLDL Cholesterol HDL Cholesterol TSH 02/10/19 02/10/19 02/11/19 21:03 23:35 05:35 WBC RBC Hgb Hct MCV MCH MCHC RDW Std Deviation RDW Coeff of [place] Plt Count MPV Immature Gran % (Auto) Neut % (Auto) Lymph % (Auto) [place] % (Auto) Eos % (Auto) Baso % (Auto) Absolute Neuts (auto) Absolute Lymphs (auto) Nucleated RBC % Sodium Potassium Chloride Carbon Dioxide Anion Gap BUN Creatinine Estim Creat Clear Calc Est GFR (MDRD) Af Amer Est GFR (MDRD) Non-Af BUN/Creatinine Ratio Glucose Calcium Phosphorus Magnesium Troponin I < 0.015 < 0.015 Triglycerides 139 Cholesterol 201 H LDL Cholesterol 105 VLDL Cholesterol 28 HDL Cholesterol 68 TSH 1.66 Discharge Diet: No Restrictions Discharge Activity: Return to Normal Activity Call your doctor if you observe: Shortness of breath, Dizziness, Fainting spells, Chest pain Home Medications: Medications to take at Discharge calcium carbonate-vitamin D3 600 mg (1,500 mg)-400 unit capsule 1 cap PO BID 09/05/17 [place]-3 Fatty Acids/Fish Oil [Fish Oil 1,000 mg Capsule] 1 ea PO BID 02/10/19 Primary Care Physician: Julius Gregorio MD [Primary Care Provider] - Please follow up with your Primary Care Physician in: 1 Week Please Follow Up With: Andre Saeed DO When: As scheduled 02/17/19 Please Follow Up With: Amanda Dalton MD - [facility] When: 2-4 weeks or sooner if recurrent symptoms Disposition: Home Minutes spent on discharge:: 35 Patient Condition:: Stable Medical Necessity - Tobacco Use Smoking Status: Never smoker Meaningful Use Info Meaningful Use Diagnoses (Choose all that apply): None applicable
== END 2019-02-11 15:09 | disposition home or self-care (01) ==
LOC: ED 18:19 → PCU 20:33
PROVIDERS: Admitting Provider Internal Medicine; Emergency Provider Emergency Medicine; Family Provider Family Medicine; PCP Family Medicine; Visit Provider Internal Medicine
DX: R07.89 Other chest pain (principal); I73.00 Raynaud's syndrome without gangrene; G47.33 Obstructive sleep apnea (adult) (pediatric); M81.0 Age-related osteoporosis without current pathological fracture; I95.1 Orthostatic hypotension; D22.71 Melanocytic nevi of right lower limb, including hip; R94.31 Abnormal electrocardiogram [ECG] [EKG]
CPT/HCPCS: 36415; 71045; 78452; 80048; 80061; 83735; 84100; 84443; 84484; 85025; 93005; 93017; 99218; 99285; A9500; A4216; G0378

== ENCOUNTER → 2019-03-19 20:14 | Outpatient (CLI) | payer OTHER, SELFPAY ==
[2019-02-17 10:58] VITALS: BMI 21.2
== END ==
PROVIDERS: Family Provider Family Medicine; PCP Family Medicine; Referring Provider Internal Medicine Critical Care Medicine; Visit Provider Internal Medicine Critical Care Medicine
DX: G47.33 Obstructive sleep apnea (adult) (pediatric) (principal)
CPT/HCPCS: 95811

== ENCOUNTER → 2019-03-23 16:17 | Outpatient (CLI) | payer OTHER, SELFPAY ==
[2019-02-17 10:58] VITALS: BMI 21.2
--- NOTE | 2019-03-23 16:19 | BI_ITS ---
MAMMOGRAPHY - BILATERAL SCREENING REASON FOR EXAM: Female, 58 years old. Routine annual screening examination. PERTINENT HISTORY: Aunt with breast cancer. TECHNIQUE: Digital bilateral breast selvin (3D mammographic acquisition) in the CC and MLO projections. 2-D mediolateral oblique (MLO) and craniocaudad (CC) views of both breasts were obtained. CAD: Full Field Digital Mammography with Computer Added Detection was performed. COMPARISON: Comparison is made with prior study dated December 05, 2015 and October 16, 2016. FINDINGS: Breast Composition: The breasts are heterogeneously dense, which may obscure small masses. There are no dominant masses or suspicious calcifications. Stable small benign-appearing bilateral axillary lymph nodes. No other significant abnormalities are identified. There has been no significant change since the prior study. BI/SCREEN MAMM (CAD) W/SELVIN BILAT IMPRESSION: Stable bilateral screening mammogram. Yearly follow-up mammogram recommended. (A) ASSESSMENT CATEGORY: BIRADS Category 2: Benign. A letter regarding these results will be sent to the patient by the facility within 30 days. Approximately 10% of breast cancers are not detected by mammography. A normal mammogram should not delay biopsy of a clinically suspicious abnormality. [id number] Electronically Signed: Sam Abdi, at 9:19 EDT , Service support ,
== END ==
PROVIDERS: Family Provider Family Medicine; PCP Family Medicine; Referring Provider Family Medicine; Visit Provider Family Medicine
DX: Z12.31 Encounter for screening mammogram for malignant neoplasm of breast (principal); Z80.3 Family history of malignant neoplasm of breast
CPT/HCPCS: 77063; 77067

== ENCOUNTER 2020-08-02 19:44 | Emergency (ER) | payer OTHER, SELFPAY ==
[2019-02-17 10:58] VITALS: BMI 21.2
[2020-08-02 19:45] VITALS: BP 107/69; PULSE 70; RESP 16; TEMP 36.1; O2SAT 97; BMI 20.2
--- NOTE | 2020-08-02 19:50 | RAD_ITS ---
STUDY: X-RAY - RIGHT HAND REASON FOR EXAM: Female, 60 years old. PT STATES SHE INJURED HER RIGHT HAND LAST NIGHT WHEN A PLATE BROKE. STATES IS SWOLLEN AND PAINFUL TO MOVE. TECHNIQUE: 3 view(s) of the hand. COMPARISON: None. FINDINGS: Normal radiocarpal articulation. Normal distal radioulnar joint. Normal visualized carpal bones. Normal carpal articulations Normal carpometacarpal articulation of the thumb. Normal second through fifth carpometacarpal joints. On the lateral projection there is soft tissue swelling of the dorsal surface of the hand overlying the metacarpals. There is a questionable hairline fracture of the proximal fifth metacarpal although this is not clearly identified on the other views. Clinical correlation is recommended Normal metacarpophalangeal joint of the thumb. Normal interphalangeal joint of the thumb. Normal proximal and distal phalanges of the thumb. Normal metacarpophalangeal joints of the second through fifth fingers. Normal proximal and distal interphalangeal joints of the second through fifth fingers. Normal phalanges of the second through fifth fingers. The soft tissue structures are unremarkable. RAD/Hand Min 3 Views IMPRESSION: Soft tissue swelling of the dorsal surface of the hand. Cannot definitively exclude hairline fracture of the proximal fifth metacarpal. Clinical correlation recommended Electronically Signed: Fazal Reyes MD at 20:09 EST , Service support ,
--- NOTE | 2020-08-02 20:23 | ED.DCSUM_ITS ---
History of Present Illness Chief Complaint: Upper Extremity Injury Informant: Patient Narrative: 60-year-old female states that last night she was doing dishes and the plate dropped into the sink broke and one of the pieces came up and cut the back of her hand. She states that she slowly developed swelling and today it is very painful to move red warm and is worried about internal bleeding. She states that she does not need a tetanus shot she states she had tetanus disease as a child while living in [place]. - Past Medical History (1) Chronic back pain Status: Chronic (2) YI (obstructive sleep apnea) Status: Chronic (3) Osteoporosis Status: Chronic (4) Raynaud phenomenon Status: Chronic Past Medical History - Allergies and Home Meds Allergies/Adverse Reactions: Allergies No Known Allergies Allergy (Verified 08/02/20 19:47) Primary Care Physician: Julius Gregorio MD [Primary Care Provider] - 3-5 Days if not improving Surgical History: noncontributory Smoking Status: Never smoker Drugs: None Review of Systems General: Denies: Chills, Fever, Sweats Eyes: Denies: Visual changes - bilaterally, Diplopia ENT: Denies: Rhinorrhea, Sore throat Cardiovascular: Denies: Chest pain, Palpitations Respiratory: Denies: Dyspnea, Cough, Dyspnea on exertion Gastrointestinal: Denies: Abdominal pain, Nausea, Vomiting, Diarrhea, Melena, Hematochezia Genitourinary: Denies: Dysuria, Hematuria, Frequency Musculoskeletal: Reports: Swelling, Extremity Pain. Denies: Back pain Skin: Reports: Wounds. Denies: Rash Neurological: Denies: Headache, Weakness, Numbness Physical Exam Vital Signs/Narrative: Vital Signs Temp Pulse Resp BP Pulse Ox 08/02/20 19:45 97.0 F L 70 16 107/69 97 Inital Vital Signs reviewed: Yes General: Well nourished, Well developed, No Acute Distress Head: Normocephalic, Atraumatic Eyes: Perrl, EOMI ENT: Moist mucous membranes, No rhinorrhea Neck: Supple, Nontender Cardiovascular: Regular rate, Regular rhythm, No murmurs Respiratory: No distress, CTA bilaterally, Chest nontender Abdomen: Soft, Nontender, Nondistended, Normal bowel sounds Back: Nontender, Normal Inspection Extremities: - - There is 1/2 cm linear laceration over the dorsum of the right hand in between the tensor tendons of the index and long fingers. The back of the hand is mildly swollen and erythematous. There is no evidence of flexor tenosynovitis at the current time. There is no lymphangitic streaking. Skin: Normal color, No rash Neurological: Alert, Oriented x3, Cranial nerves II-XII grossly intact, Normal Strength, Normal Sensation Psychological: Normal affect, Normal Mood Diagnostic/Tx/Re-eval Clinical Impression(s) from Imaging Studies Hand X-Ray 08/02/20 19:50 IMPRESSION: Soft tissue swelling of the dorsal surface of the hand. Cannot definitively exclude hairline fracture of the proximal fifth metacarpal. Clinical correlation recommended Electronically Signed: Fazal Reyes MD at 20:09 EST , Service support , - Medical Decision Making My impression of the three-view plain films of the right hand are negative for fracture and foreign body. Radiology's impression is possible hairline fracture of the fifth metacarpal. However she has no tenderness and the injury is lateral to this. The injury is not consistent with mechanism for fracture. Patient is neurovascular intact. She has a small laceration to the dorsum of the hand that is over 24 hours old and the edges are approximated. She has evidence of cellulitis. We will place her on Keflex and put her in a cock-up splint. Local wound care return if worsening or concerns. ED Disposition - Plan for ED Patient: Disposition: Home or Assisted Living Diagnosis: Cellulitis of right hand, Laceration of right hand Instructions: ED Cellulitis, ED Laceration Small or ... Prescriptions: Cephalexin [Keflex] 500 mg PO Q6 #40 cap Prescription Printed Referrals: Julius Gregorio MD [Primary Care Provider] - 3-5 Days if not improving
[2020-08-02 20:58] VITALS: PULSE 86; RESP 16
[2020-08-02] MEDS: Cephalexin 250 MG Capsule 500 MG PO (20:58)
== END 2020-08-02 20:59 | disposition home or self-care (01) ==
LOC: ED 20:31
PROVIDERS: Emergency Provider Emergency Medicine; PCP Family Medicine
DX: L03.113 Cellulitis of right upper limb (principal); S61.411D Laceration without foreign body of right hand, subsequent encounter; W26.8XXD Contact with other sharp object(s), not elsewhere classified, subsequent encounter; G47.33 Obstructive sleep apnea (adult) (pediatric); M54.9 Dorsalgia, unspecified; G89.29 Other chronic pain; M81.0 Age-related osteoporosis without current pathological fracture; I73.00 Raynaud's syndrome without gangrene
CPT/HCPCS: 73130; 99283

== ENCOUNTER → 2020-10-26 10:33 | Outpatient (CLI) | payer OTHER, SELFPAY | PROVIDERS: PCP Family Medicine; Referring Provider Family Medicine; Visit Provider Family Medicine | DX: L03.012 Cellulitis of left finger (principal) | CPT/HCPCS: 87070; 87077; 87205 ==

== ENCOUNTER → 2021-02-07 15:54 | Outpatient (CLI) | payer OTHER, SELFPAY ==
--- NOTE | 2021-02-07 15:58 | RAD_ITS ---
INDICATION: Dry cough EXAMINATION/TECHNIQUE: X-RAY - XR Chest 2 Views COMPARISON: 02/10/2019. FINDINGS: The lungs are clear. The cardiomediastinal silhouette is unremarkable. No pleural effusion or pneumothorax. No acute osseous abnormalities. RAD/Chest PA and Lateral IMPRESSION: No acute radiographic abnormalities. Electronically Signed: Festus Boyce MD at 16:07 EDT Tel , Service support ,
== END ==
PROVIDERS: PCP Family Medicine; Referring Provider Family Medicine; Visit Provider Family Medicine
DX: R05 Cough (principal)
CPT/HCPCS: 71046

== ENCOUNTER → 2021-02-08 11:00 | Outpatient (CLI) | payer OTHER, SELFPAY ==
[2021-02-08 15:20] LABS: Erythrocyte Sedimentation Rate 10 mm/hr (0-30)
[2021-02-08 15:22] LABS: Hematocrit 42.9 % (37-47); Hemoglobin 13.9 g/dL (12.0-15.0); Mean Corp Hgb Conc 32.4 g/dL (32-36); Mean Corpuscular Hgb 29.4 pg (27.0-32.0); Mean Corpuscular Volume 90.7 fL (81-99); Mean Platelet Vol. 10.9 fl (6.2-12.0); Platelet Count 233 K/mm3 (150-450); RBC Distribution Width CV 13.3 % (11.6-14.6); RBC Distribution Width SD 44.5 fl (35.1-43.9); Red Blood Count 4.73 M/mm3 (4.2-5.4)
[2021-02-08 15:32] LABS: Vitamin D,25 Hydroxy 42.6 ng/mL
[2021-02-08 15:53] LABS: ALB/GLOB Ratio 1.1 RATIO (0.9-2.4); AST(SGOT) 23 U/L (15-37); Alanine Aminotransfer ALT/SGPT 33 U/L (13-56); Albumin, Serum 3.8 g/dL (3.2-5.0); Alkaline Phosphatase 62 U/L (45-117); Anion Gap 6 (5-15); BUN 19 mg/dL (7-18); BUN/Creat Ratio 33.4 RATIO (10-20); CRP < 2.90 mg/L (0.0-3.0); Calcium,Total 8.9 mg/dL (8.5-10.1); Chloride 106 mmol/L (98-107); Cholesterol 224 mg/dL (200); Creatinine, Serum 0.57 mg/dL (0.55-1.02); EST Glomerular Filtration Rate 114 mL/min (>60); Est Glom Filt Rate - Afr Amer 138 mL/min (>60); Ferritin 127 ng/mL (8-252); Globulin 3.6 g/dL (2.2-4.2); Glucose 86 mg/dL (74-106); High Density Lipoprotein 71 mg/dL; Magnesium 2.3 mg/dL (1.6-2.6); Protein, Total 7.4 g/dL (6.4-8.2); Sodium Level 140 mmol/L (136-145); Thyroid Stim Hormone (TSH) 1.57 uIU/mL (0.358-3.74); Triglycerides 88 mg/dL; Very Low Density Lipoprotein 18 mg/dL (5-40)
[2021-02-10 15:54] LABS: ANTINUCLEAR ANTIBODIES DIRECT Negative (Negative)
== END ==
PROVIDERS: PCP Family Medicine; Referring Provider Family Medicine; Visit Provider Family Medicine
DX: R05 Cough (principal); K76.0 Fatty (change of) liver, not elsewhere classified; M81.0 Age-related osteoporosis without current pathological fracture
CPT/HCPCS: 36415; 80053; 80061; 82306; 82728; 83735; 84443; 85027; 85652; 86038; 86140

== ENCOUNTER → 2021-03-15 15:48 | Outpatient (CLI) | payer OTHER, SELFPAY ==
--- NOTE | 2021-03-15 15:51 | BI_ITS ---
MAMMOGRAPHY - BILATERAL SCREENING 3-D TOMOSYNTHESIS REASON FOR EXAM: Female, 60 years old. SCREENING PERTINENT HISTORY: No significant family history. TECHNIQUE: 2-D mammograms and 3-D Tomosynthesis of the breast (s) were performed. CAD was performed. COMPARISON: 03/23/2019 FINDINGS: The breast composition is Extermely dense tissue. Scattered benign calcifications are seen. No dense spiculated masses or suspicious microcalcifications are identified. No architectural distortion is identified. There is no skin thickening or retraction. There has been no significant change since the prior study. BI/SCRN MAMM (CAD)W/SELVIN BILAT IMPRESSION: No mammographic signs of malignancy. Routine yearly mammograms recommended. ASSESSMENT CATEGORY: BIRADS Category 1: Negative. A letter regarding these results will be sent to the patient by the facility within 30 days. FOLLOW UP RECOMMENDATION: Yearly follow up mammogram recommended. (A) Approximately 10% of breast cancers are not detected by mammography. A normal mammogram should not delay biopsy of a clinically suspicious abnormality. Electronically Signed: Basilio Heath MD at 16:42 EDT Tel , Service support ,
--- NOTE | 2021-03-15 15:52 | BD_ITS ---
STUDY: DUAL ENERGY X-RAY ABSORPTIOMETRY / DXA REASON FOR EXAM: Female, 60 years old. 733.00OsteoporosisBONE DENSITY REASON FOR EXAM TECHNIQUE: Bone Mineral Density (BMD) measurements of lumbar spine and bilateral hips were obtained. COMPARISON: Comparison is made with prior examination dated 04/18/2016. FINDINGS: Lumbar Spine (L1-L4): g/cm2 (0.740) / T-score (-2.8) / Z-score (-1.2) Findings are suggestive of osteoporosis with a high fracture risk. Left Femur Total: g/cm2 (0.877) / T-score (-0.5) / Z-score (0.6) Left Femoral Neck: g/cm2 (0.738) / T-score (-1.0) / Z-score (0.4) Right Femur Total: g/cm2 (0.901) / T-score (-0.3) / Z-score (0.8) Right Femoral Neck: g/cm2 (0.748) / T-score (-0.9) / Z-score (0.5) The T-Scores on the most recent prior examination were: Lumbar Spine (L1-L4): There has been worsening of bone density since the previous examination. Left Femur Total: which represents a worsening of 4.8%. Right Femur Total: which represents a worsening of 5.6%. BD/Dexa Bone Density Study IMPRESSION: The patient is considered osteoporotic as outlined below according to World Chan Organization (WHO) criteria with a high fracture risk. There has been worsening of bone density since the previous examination. Reference Information: The T-score is the number of standard deviations above or below the standard which is normal for young adults at their peak bone mineral density. The World Health Organization (WHO) interprets the T-scores as follows: Above -1 Normal bone density Between -1 and -2.5 Osteopenia Equal to / or below -2.5 Osteoporosis As a practical clinical guideline, osteopenia may be graded as follows: Mild -1 through -1.5 Moderate -1.6 through -2.0 Severe -2.1 through -2.4 The Z-score is the number of standard deviations above or below age-matched controls. A Z-score of less than -1.5 would be considered abnormal. References: 1. NIH Osteoporosis and Related Bone Diseases www osteo.org 2. International Society for Clinical Densitometry www iscd.org 3. National Osteoporosis Foundation www nof.org Electronically Signed: Sam Abdi MD at 9:44 EDT , Service support ,
== END ==
PROVIDERS: PCP Family Medicine; Referring Provider Family Medicine; Visit Provider Family Medicine
DX: Z12.31 Encounter for screening mammogram for malignant neoplasm of breast (principal); M81.0 Age-related osteoporosis without current pathological fracture
CPT/HCPCS: 77063; 77067; 77080

== ENCOUNTER → 2023-09-12 | Outpatient (CLI) | payer MEDICARE, SELFPAY ==
--- NOTE | 2023-09-12 09:33 | RAD_ITS ---
STUDY: X-RAY - PARANASAL SINUSES REASON FOR EXAM: Female, 63 years old. Cough. TECHNIQUE: 3 view(s) of the paranasal sinuses were obtained. COMPARISON: None. FINDINGS: Normal visualized frontal, maxillary, ethmoidal and sphenoid sinuses. Normal visualized facial bones. Rounded soft tissue density in the medial aspect of the left maxillary antrum compatible with a polyp. RAD/Sinuses min 3 Views IMPRESSION: Left medial maxillary antral polyp. No acute abnormality. Electronically Signed: Manjit Ascencio MD at 10:34 EST ,
[2023-09-12 09:37] LABS: Bacteria 0 SEEN /hpf (None Seen); Mucous, Urine 0 SEEN /hpf (<or=2+); Red Blood Cells-Urine 0 SEEN /hpf (0-5); Squamous Epithelial Cells - UA 0 SEEN /hpf (5-10)
[2023-09-12 12:24] LABS: Absolute Lymphocyte Count 2.75 X10^3/uL (0.83-4.51); Absolute Neutrophil Count 2.8 X10^3/uL (2.0-7.7); Basophil# 0.08 X10^3/uL; Basophil% 1.3 % (0-1); Eosinophil# 0.15 X10^3/uL; Eosinophils% 2.4 % (0-5); Hematocrit 41.8 % (37-47); Hemoglobin 13.1 g/dL (12.0-15.0); Lymphocyte # 2.75 X10^3/ul (0.83-4.51); Lymphocyte % 44.9 % (19-41); Mean Corp Hgb Conc 31.3 g/dL (32-36); Mean Corpuscular Volume 92.7 fL (81-99); Mean Platelet Vol. 11.4 fl (6.2-12.0); Monocyte# 0.36 X10^3/uL; Monocyte% 5.9 % (0-10); NRBC Flagged by Analyzer 0 % (0-5); Neutrophil # 2.78 X10^3/uL (2.7-7.7); Neutrophil % 45.3 % (47-70); Platelet Count 240 K/mm3 (150-450); RBC Distribution Width CV 14.3 % (11.6-14.6); RBC Distribution Width SD 49.1 fl (35.1-43.9); Red Blood Count 4.51 M/mm3 (4.2-5.4); White Blood Count 6.1 K/mm3 (4.4-11.0)
[2023-09-12 12:38] LABS: Color, Urine Yellow (Yellow); Glucose, Dipstick Normal (Normal); Ketone-Dipstick Negative (Negative); Leukocyte Esterase-Dipstick 25 /ul (Negative); Nitrite-Dipstick Negative (Negative); Occult Blood-Urine Negative /ul (Negative); Protein-Dipstick Negative (Negative); Urine Bilirubin Dipstick Negative (Negative); Urine Clarity Clear (Clear); Urine Urobilinogen Normal (Normal)
[2023-09-12 12:54] LABS: AST(SGOT) 16 U/L (15-37); Alanine Aminotransfer ALT/SGPT 22 U/L (13-56); Albumin, Serum 3.7 g/dL (3.2-5.0); Alkaline Phosphatase 75 U/L (45-117); Anion Gap 4 (5-15); BUN 23 mg/dL (7-18); BUN/Creat Ratio 34.2 RATIO (10-20); CRP < 2.90 mg/L (0.0-3.0); Calcium,Total 9.1 mg/dL (8.5-10.1); Chloride 107 mmol/L (98-107); Creatinine, Serum 0.67 mg/dL (0.55-1.02); EST Glomerular Filtration Rate 93 mL/min (>60); Est Glom Filt Rate - Afr Amer 113 mL/min (>60); Globulin 3.6 g/dL (2.2-4.2); Glucose 65 mg/dL (74-106); Potassium 3.8 mmol/L (3.5-5.1); Protein, Total 7.3 g/dL (6.4-8.2); Sodium Level 140 mmol/L (136-145); Thyroid Stim Hormone (TSH) 1.35 uIU/mL (0.358-3.74)
[2023-09-12 12:56] LABS: White Blood Cells 0-5 SEEN /hpf (0-5)
[2023-09-16 19:07] LABS: QNTFERON TB Mitogen Value > 10.00 IU/mL (.); QNTFERON TB Nil Value 0.94 IU/mL (.); QNTFERON TB1+ Ag Value 4.69 IU/mL (.); QNTFERON TB2+ Ag Value 3.79 IU/mL (.); QNTIFERON TB Positive Criteria Positive (Negative)
== END | disposition home or self-care (01) ==
LOC: MTLAB 09:31
PROVIDERS: PCP Family Medicine; Referring Provider Family Medicine; Visit Provider Family Medicine
DX: R05.3 Chronic cough (principal); R63.4 Abnormal weight loss
CPT/HCPCS: 36415; 70220; 80053; 81001; 84443; 85025; 86140; 86480

== ENCOUNTER → 2023-10-08 | Outpatient (CLI) | payer SELFPAY ==
--- NOTE | 2023-10-08 15:54 | RAD_ITS ---
INDICATION: POSITIVE TB EXAMINATION/TECHNIQUE: X-RAY - XR Chest 2 Views COMPARISON: None applicable. FINDINGS: LINES/DEVICES: None. LUNGS: No consolidation, edema or effusion. No evidence of cavitary lesion. No pneumothorax. MEDIASTINUM AND CARDIOVASCULAR STRUCTURES: Cardiac silhouette not enlarged. No bulky hilar adenopathy. BONES AND SOFT TISSUES: Unremarkable. RAD/Chest PA and Lateral IMPRESSION: No radiographic evidence of active pulmonary tuberculosis or other acute cardiopulmonary process. Electronically Signed: Nestor Vance MD at 8:37 EDT ,
--- NOTE | 2023-10-09 09:12 | CPS ---
I have spoken to patient several times to schedule the sputum induction as ordered by Dr. Julius Gregorio. First communication was 10/08/23 in the morning then again at 3:55pm same day. She was concerned about OOP cost d/t insurance OON with [facility]. I was able to obtain OOP cost for her which I provided at the last call, at which time she was having her CXR. I just spoke to her this morning and she wants to wait until her telephone appt with her physician this afternoon to review results and see if need to proceed with sputum induction. She will call me either way. She is aware SI requires 3 consecutive days and first thing in the morning.
== END | disposition home or self-care (01) ==
PROVIDERS: PCP Family Medicine; Referring Provider Family Medicine; Visit Provider Family Medicine
DX: Z11.1 Encounter for screening for respiratory tuberculosis (principal); R76.12 Nonspecific reaction to cell mediated immunity measurement of gamma interferon antigen response without active tuberculosis
CPT/HCPCS: 71046

== ENCOUNTER → 2023-10-13 | Outpatient (CLI) | payer MEDICARE, SELFPAY ==
[2023-10-13 10:33] VITALS: PULSE 56; RESP 16
--- NOTE | 2023-10-13 10:40 | CPS ---
Patient given aerosol and pep therapy for sputum induction. Use of PEP encouraged at home as well to help mobilize any secretions. Patient provided with sterile sputum cup and instructions on use. She is to bring PEP device again for next 2 mornings as well. She returned demonstration on PEP use and verbalized understanding.
== END | disposition home or self-care (01) ==
PROVIDERS: PCP Family Medicine; Referring Provider Family Medicine; Visit Provider Family Medicine
DX: R76.12 Nonspecific reaction to cell mediated immunity measurement of gamma interferon antigen response without active tuberculosis (principal)
CPT/HCPCS: 94640; 94667

== ENCOUNTER → 2023-10-14 | Outpatient (CLI) | payer MEDICARE, SELFPAY ==
--- NOTE | 2023-10-14 06:38 | CPS ---
pt came in for TB rule out, used albuterol in a pentamidine setup.
== END | disposition home or self-care (01) ==
PROVIDERS: PCP Family Medicine; Referring Provider Family Medicine; Visit Provider Family Medicine
DX: R76.12 Nonspecific reaction to cell mediated immunity measurement of gamma interferon antigen response without active tuberculosis (principal)
CPT/HCPCS: 94640

== ENCOUNTER → 2023-10-15 | Outpatient (CLI) | payer MEDICARE, SELFPAY | END | disposition home or self-care (01) | PROVIDERS: PCP Family Medicine; Referring Provider Family Medicine; Visit Provider Family Medicine | DX: R76.12 Nonspecific reaction to cell mediated immunity measurement of gamma interferon antigen response without active tuberculosis (principal) | CPT/HCPCS: 87015; 87070; 87116; 87205; 87206; 94640; 94668 ==

== ENCOUNTER → 2023-10-20 | Outpatient (CLI) | payer MEDICARE, SELFPAY ==
--- NOTE | 2023-10-20 14:46 | RAD_ITS ---
STUDY: X-RAY - LUMBAR SPINE REASON FOR EXAM: Female, 63 years old. Low back pain. TECHNIQUE: 4 view(s) of the lumbar spine were obtained. COMPARISON: 09/09/2017 FINDINGS: Osteopenia. Normal lumbar lordosis. Minimal levoscoliosis. Normal vertebral alignment. Endplate concavities compatible with osteoporosis. Minimal loss of height of the L4 vertebral body. Diffuse lower thoracic and lumbosacral facet sclerosis. Diffuse intervertebral disc space narrowing most marked at L2-3 through L5-S1 with osteophyte formation. Phleboliths. RAD/L/S Spine Min 4 Views IMPRESSION: Osteopenia with diffuse mild to moderate lumbosacral spondylosis. Electronically Signed: Manjit Ascencio MD at 15:57 EDT ,
== END | disposition home or self-care (01) ==
LOC: MTRAD 14:45
PROVIDERS: PCP Family Medicine; Referring Provider Family Medicine; Visit Provider Family Medicine
DX: M54.50 Low back pain, unspecified (principal)
CPT/HCPCS: 72110

== ENCOUNTER → 2023-11-12 | Outpatient (CLI) | payer MEDICARE, SELFPAY ==
--- NOTE | 2023-11-12 08:28 | CT_ITS ---
STUDY: CT CHEST WITH CONTRAST REASON FOR EXAM: Female, 63 years old. CHRONIC HOARSENESS RADIATION DOSAGE (If Supplied By Facility): CTDIvol = ( 10.39 ) mGy, DLP = ( 572.37 ) mGycm TECHNIQUE: Transaxial imaging was performed following intravenous administration of IV 100mL Isovue-370. Multiplanar coronal and sagittal images were reformatted. Individualized dose optimization techniques were used for this CT. COMPARISON: No relevant priors. FINDINGS: CHEST The lungs are normal. There is no demonstrated pleural abnormality. Normal heart and pericardium. No coronary artery calcification seen. There is a 1.5 cm x 1 cm partially calcified lymph node in the anterior mediastinum adjacent to the aortic arch. Normal hilar regions. Normal unenhanced pulmonary arteries. Normal aorta arch and descending thoracic aorta. Loss of height of the superior endplate of the T12 vertebrae. Minimal loss of height of the T8 7 vertebrae and possibly hemangioma. There is no demonstrated abnormality of the visualized upper abdomen. CT/Chest WITH Contrast IMPRESSION: 1.5 cm x 1 cm partially calcified lymph node in the anterior mediastinum adjacent to the aortic arch. No pulmonary consolidation or mass lesion is seen. Electronically Signed: Sam Abdi MD at 14:28 EDT ,
--- NOTE | 2023-11-12 08:28 | CT_ITS ---
STUDY: CT SOFT TISSUE NECK WITH CONTRAST REASON FOR EXAM: Female, 63 years old. CHRONIC HOARSENESS RADIATION DOSAGE (If Supplied By Facility): CTDIvol = ( 10.39 ) mGy, DLP = ( 572.37 ) mGycm TECHNIQUE: The patient was scanned in a multi-detector CT scanner. High resolution transaxial imaging was performed following intravenous administration of IV 100mL Isovue-370. Sagittal and coronal images were reconstructed. Individualized dose optimization techniques were used for this CT. COMPARISON: None. FINDINGS: Normal bilateral parotid glands. Normal bilateral enrollment advisor spaces. Normal bilateral parapharyngeal spaces. Normal bilateral carotid spaces. Normal bilateral sublingual and submandibular glands and spaces. Normal visualized nasopharynx. Normal retropharyngeal space. Normal perivertebral space. Normal visualized bilateral faucial tonsils. The visualized tongue, tongue base and oropharynx are normal. The visualized cervical lymph nodes (levels I-) are within normal size limits, and maintain normal morphology. There is no demonstrated solid or cystic mass lesion. There is no abnormal contrast enhancement. Normal epiglottis, bilateral vallecula and hypopharynx. The pre-epiglottic and paraglottic adipose spaces are normal. Normal visualized bilateral piriform sinuses, aryepiglottic folds, vocal cords, and arytenoid-cricoid articulations. Normal subglottic trachea. Normal bilateral lobes of the thyroid gland. Normal visualized pulmonary apices. Normal visualized paranasal sinuses. There is degenerative changes of the cervical spine. CT/Soft Tissue Neck WITH Contrast IMPRESSION: No acute abnormality is seen. Electronically Signed: Sam Abdi MD at 15:34 EDT ,
[2023-11-12 09:06] LABS: CREATININE FINGERSTICK < 1.0 mg/dL (0.55-1.02); EGFR FINGERSTICK > 60.0000 mL/min (>60)
== END | disposition home or self-care (01) ==
LOC: CT 08:26
PROVIDERS: PCP Family Medicine; Referring Provider Internal Medicine Infectious Disease; Visit Provider Internal Medicine Infectious Disease
DX: R49.0 Dysphonia (principal)
CPT/HCPCS: 70491; 71260; Q9967

== ENCOUNTER → 2024-01-27 | Outpatient (CLI) | payer MEDICARE, SELFPAY ==
[2024-01-27 17:56] LABS: AST(SGOT) 22 U/L (15-37); Alanine Aminotransfer ALT/SGPT 25 U/L (13-56); Albumin, Serum 3.4 g/dL (3.2-5.0); Alkaline Phosphatase 73 U/L (45-117); Anion Gap 3 (5-15); BUN 26 mg/dL (7-18); Calcium,Total 9.2 mg/dL (8.5-10.1); Chloride 106 mmol/L (98-107); EST Glomerular Filtration Rate 67 mL/min (>60); Est Glom Filt Rate - Afr Amer 81 mL/min (>60); Globulin 3.4 g/dL (2.2-4.2); Glucose 97 mg/dL (74-106); Potassium 4.2 mmol/L (3.5-5.1); Protein, Total 6.8 g/dL (6.4-8.2); Sodium Level 140 mmol/L (136-145)
== END | disposition home or self-care (01) ==
PROVIDERS: PCP Family Medicine; Referring Provider Family Medicine; Visit Provider Family Medicine
DX: K29.70 Gastritis, unspecified, without bleeding (principal)
CPT/HCPCS: 36415; 80053; 87506

== ENCOUNTER → 2024-07-23 | Outpatient (CLI) | payer MEDICARE, SELFPAY ==
[2024-07-23 11:59] LABS: Absolute Lymphocyte Count 2.09 X10^3/uL (0.83-4.51); Absolute Neutrophil Count 6.2 X10^3/uL (2.0-7.7); Basophil# 0.05 X10^3/uL; Basophil% 0.6 % (0-1); Eosinophil# 0.16 X10^3/uL; Eosinophils% 1.8 % (0-5); Hematocrit 41.6 % (37-47); Hemoglobin 13.6 g/dL (12.0-15.0); Lymphocyte # 2.09 X10^3/ul (0.83-4.51); Mean Corp Hgb Conc 32.7 g/dL (32-36); Mean Corpuscular Volume 91.6 fL (81-99); Mean Platelet Vol. 10.4 fl (6.2-12.0); Monocyte# 0.59 X10^3/uL; Monocyte% 6.5 % (0-10); NRBC Flagged by Analyzer 0 % (0-5); Neutrophil # 6.17 X10^3/uL (2.7-7.7); Neutrophil % 67.9 % (47-70); Platelet Count 238 K/mm3 (150-450); RBC Distribution Width CV 13.4 % (11.6-14.6); RBC Distribution Width SD 45.7 fl (35.1-43.9); Red Blood Count 4.54 M/mm3 (4.2-5.4); White Blood Count 9.1 K/mm3 (4.4-11.0)
[2024-07-23 12:00] LABS: Erythrocyte Sedimentation Rate 3 mm/hr (0-30)
[2024-07-23 12:57] LABS: AST(SGOT) 18 U/L (15-37); Alanine Aminotransfer ALT/SGPT 21 U/L (13-56); Albumin, Serum 3.7 g/dL (3.2-5.0); Alkaline Phosphatase 64 U/L (45-117); Anion Gap 3 (5-15); BUN 26 mg/dL (7-18); BUN/Creat Ratio 39.2 RATIO (10-20); CRP < 2.90 mg/L (0.0-3.0); Calcium,Total 9.6 mg/dL (8.5-10.1); Chloride 110 mmol/L (98-107); Cholesterol 225 mg/dL (200); Creatinine, Serum 0.66 mg/dL (0.55-1.02); EST Glomerular Filtration Rate 95 mL/min (>60); Est Glom Filt Rate - Afr Amer 115 mL/min (>60); Ferritin 151 ng/mL (8-252); Globulin 3.7 g/dL (2.2-4.2); Glucose 94 mg/dL (74-106); High Density Lipoprotein 88 mg/dL; Potassium 4.5 mmol/L (3.5-5.1); Protein, Total 7.4 g/dL (6.4-8.2); Sodium Level 140 mmol/L (136-145); Triglycerides 85 mg/dL; Very Low Density Lipoprotein 17 mg/dL (5-40)
[2024-07-23 14:27] LABS: Hemoglobin A1c 5.5 % (3.8-5.6)
== END | disposition home or self-care (01) ==
LOC: MTLAB 10:00
PROVIDERS: PCP Family Medicine; Referring Provider Family Medicine; Visit Provider Family Medicine
DX: G47.62 Sleep related leg cramps (principal); R05.3 Chronic cough; E78.1 Pure hyperglyceridemia

== ENCOUNTER → 2024-08-17 | Outpatient (CLI) | payer MEDICARE, SELFPAY ==
--- NOTE | 2024-08-17 15:59 | BI_ITS ---
PROCEDURE: SCRN MAMM (CAD)W/SELVIN BILAT REASON FOR EXAM: F, Age 64 y/o, maternal aunt with breast cancer. TECHNIQUE: Bilateral screening digital breast tomosynthesis with 2D and 3D images. Computer aided detection. COMPARISON: Prior exam(s) dating back to March 15, 2021.. FINDINGS: The breasts are extremely dense which lowers the sensitivity of mammography. Stable examination. No suspicious masses, areas of developing architectural distortion, or suspicious calcifications. BI/SCRN MAMM (CAD)W/SELVIN BILAT IMPRESSION: BI-RADS 1: NEGATIVE. RECOMMEND ANNUAL MAMMOGRAPHIC SCREENING. Follow-up code: Routine Follow-up The patient will be notified of the results by letter. Reading Location: [place] [id number]
--- NOTE | 2024-08-17 16:03 | BD_ITS ---
PROCEDURE: DEXA BONE DENSITY STUDY REASON FOR EXAM: 64-year-old female. Osteoporosis screening. TECHNIQUE: DEXA scan of the lumbar spine and both hips. COMPARISON: 03/15/2021 FINDINGS: T-SCORES Lumbar spine: -2.9, previously -2.8. Bone mineral density of the lumbar spine 0.733 g per cm2. No significant interval change from the prior study Left hip: -1.2, previously 0.9. Bone mineral density of the left femoral neck 0.714 g per cm2. 4.7% decreased bone mineral density from the previous study. Right hip: -1.1. Previously -0.8. Bone mineral density of the right femoral neck is 0.725 g per cm2. 5.6 % decreased bone mineral density from the prior study. FRAX* Results: 10 Year Probability of Fracture: Hip Fracture(1): 0.5% Major Osteoporotic Fracture(2): 7.9% *FRAX is a trademark of the [employer] [place] [employer] Metabolic [employer] Disease, World Health Organization (WHO) [employer]ating [place]. 1-The 10-year probability of fracture may be lower than reported if the patient has received treatment. 2-Major Osteoporotic Fracture: Clinical Spine, Forearm, Hip or Shoulder. The T-scores are also available for review on the [facility] PACS or by accessing the [facility] electronic medical record. BD/Dexa Bone Density Study IMPRESSION: Osteopenia. Reading Location: [place]
== END | disposition home or self-care (01) ==
LOC: OPBD 15:57
PROVIDERS: PCP Family Medicine; Referring Provider Family Medicine; Visit Provider Family Medicine
DX: Z12.31 Encounter for screening mammogram for malignant neoplasm of breast (principal); M81.0 Age-related osteoporosis without current pathological fracture
CPT/HCPCS: 77063; 77067; 77080

== ENCOUNTER → 2025-04-12 | Outpatient (CLI) | payer MEDICARE, SELFPAY ==
[2025-04-12 10:19] LABS: Mucous, Urine 0 SEEN /hpf (<or=2+); Red Blood Cells-Urine 0 SEEN /hpf (0-5)
[2025-04-12 12:21] LABS: Hematocrit 39.1 % (37-47); Hemoglobin 12.9 g/dL (12.0-15.0); Immature Granulocytes Count 0.020 X10^3/uL (0.0-0.0); Mean Corp Hgb Conc 33.0 g/dL (32-36); Mean Corpuscular Volume 90.5 fL (81-99); Mean Platelet Vol. 11.0 fl (6.2-12.0); NRBC Flagged by Analyzer 0 % (0-5); Platelet Count 202 K/mm3 (150-450); RBC Distribution Width CV 13.4 % (11.6-14.6); RBC Distribution Width SD 44.5 fl (35.1-43.9); Red Blood Count 4.32 M/mm3 (4.2-5.4); White Blood Count 7.1 K/mm3 (4.4-11.0)
[2025-04-12 12:22] LABS: Color, Urine Yellow (Yellow); Glucose, Dipstick Normal (Normal); Ketone-Dipstick Negative (Negative); Leukocyte Esterase-Dipstick Negative /ul (Negative); Nitrite-Dipstick Negative (Negative); Occult Blood-Urine Negative /ul (Negative); Protein-Dipstick 15 mg/dl (Negative); Specific Gravity, Urine 1.015 (1.002-1.030); Urine Bilirubin Dipstick Negative (Negative)
[2025-04-12 12:32] LABS: Squamous Epithelial Cells - UA 0-5 SEEN /hpf (5-10)
[2025-04-12 12:54] LABS: AST(SGOT) 29 U/L (<=31); Alanine Aminotransfer ALT/SGPT 17 U/L (<=34); Albumin, Serum 4.4 g/dL (3.4-4.8); Alkaline Phosphatase 61 U/L (35-104); Anion Gap 11 (5-15); BUN 26 mg/dL (4-19); BUN/Creat Ratio 43.0 RATIO (10-20); Calcium,Total 9.6 mg/dL (7.6-11.0); Carbon Dioxide 23.6 mmol/L (21.0-32.0); Chloride 106 mmol/L (98-108); Globulin 2.7 g/dL (2.2-4.2); Glucose 94 mg/dL (70-99); Potassium 3.9 mmol/L (3.3-5.1)
[2025-04-13 16:09] LABS: PROEL- A/G Ratio 1.3 (0.7-1.7); PROEL- Albumin 3.9 g/dL (2.9-4.4); PROEL- Alpha-1 Globulin 0.2 g/dL (0.0-0.4); PROEL- Alpha-2 Globulin 0.6 g/dL (0.4-1.0); PROEL- Beta Globulin 1.1 g/dL (0.7-1.3); PROEL- Gamma Globulin 1.0 g/dL (0.4-1.8); PROEL- Globulin, Total 2.9 g/dL (2.2-3.9); PROEL- TOTAL PROTEIN 6.8 g/dL (6.0-8.5); PROEL-M-Spike Not Observed g/dL (Not Observed)
== END | disposition home or self-care (01) ==
PROVIDERS: PCP Family Medicine; Referring Provider Family Medicine; Visit Provider Family Medicine
DX: R10.9 Unspecified abdominal pain (principal); M54.50 Low back pain, unspecified; G89.29 Other chronic pain
CPT/HCPCS: 36415; 80053; 81001; 84165; 85025; 85652